=== PATIENT | female | born 1970 | race Caucasian/White ===

== ENCOUNTER 2017-09-05 11:40 | Emergency (ER) | payer OTHER ==
[2017-09-05 12:32] VITALS: BP 111/58
--- NOTE | 2017-09-05 12:45 | UC ---
Respiratory Complaint HPI - HPI Summary HPI Summary: cough / chest congestion x 10 day no fever, no chills, no nasal congestion , + sore throat - History of Current Complaint Chief Complaint: UCRespiratory Stated Complaint: THROAT,CHEST CONGESTION Time Seen by Provider: 09/05/17 12:33 Hx Obtained From: Patient Hx Last Menstrual Period: 2 weeks ?: No Onset/Duration: Gradual Onset, Lasting Days - 10, Still Present Timing: Constant Severity Initially: Moderate Severity Currently: Moderate Character: Cough: Nonproductive Aggravating Factors: Exertion, Deep Breaths Alleviating Factors: Nothing Associated Signs And Symptoms: Negative: Dyspnea, Fever, Chills, Pleuritic Chest Pain, Wheezing, Hemoptysis, Dizziness, Calf Pain, Calf Swelling, Edema, URI, Nasal Congestion, Hoarseness, Sinus Discomfort - Allergies/Home Medications Allergies/Adverse Reactions: Allergies Allergy/AdvReac Type Severity Reaction Status Date / Time No Known Allergies Allergy Verified 09/05/17 12:32 Home Medications: Home Medications Premapaxole 1 tab PO BID 09/05/17 [History] PMH/Surg Hx/FS Hx/Imm Hx Cancer History: Cervical Cancer - Surgical History Surgical History: Yes Surgery Procedure, Year, and Place: tubal ligation 1997, breast reduction 03/31, GALL BLADDER, UMBILICAL HERNIA REPAIR; D and C, cervical bx [facility] 08/25/17 - Family History Known Family History: Negative: Diabetes - Social History Alcohol Use: Rare Substance Use Type: None Smoking Status (MU): Heavy Every Day Tobacco Smoker Review of Systems Constitutional: Negative Skin: Negative Eyes: Negative ENT: Sore Throat Respiratory: Cough Cardiovascular: Negative Gastrointestinal: Negative Genitourinary: Negative Is Patient Immunocompromised?: No All Other Systems Reviewed And Are Negative: Yes Physical Exam Triage Information Reviewed: Yes Appearance: Well-Appearing, No Pain Distress, Obese Vital Signs: Initial Vital Signs Temp 97.9 F 09/05/17 12:23 Pulse 73 09/05/17 12:23 Resp 18 09/05/17 12:23 BP 111/58 09/05/17 12:23 Pulse Ox 100 09/05/17 12:23 Eye Exam: Normal ENT: Positive: Normal ENT inspection, Hearing grossly normal, Pharynx normal, Pharyngeal erythema, TMs normal. Negative: Nasal congestion, Nasal drainage Neck exam: Normal Neck: Positive: Supple, Nontender, No Lymphadenopathy Respiratory: Positive: Chest non-tender, Lungs clear, Normal breath sounds, No respiratory distress Cardiovascular: Positive: RRR, No Murmur, Pulses Normal UC Diagnostic Evaluation - Laboratory O2 Sat by Pulse Oximetry: 100 Respiratory Course/Dx - Differential Dx/Diagnosis Provider Diagnoses: viral bronchitis Discharge - Discharge Plan Condition: Stable Disposition: HOME Prescriptions: Guaifenesin-Codeine [Cheratussin AC] 10 syp PO Q8H #120 ml MDD 30 ml Patient Education Materials: Acute Bronchitis (ED) Referrals: Cass Membreno MD [Primary Care Provider] - 7 Days
== END 2017-09-05 13:00 | disposition home or self-care (01) ==
LOC: UCCORT 11:40
DX: J20.8 Acute bronchitis due to other specified organisms (principal); F17.200 Nicotine dependence, unspecified, uncomplicated
CPT/HCPCS: 99212; G0463

== ENCOUNTER 2018-04-17 18:57 | Emergency (ER) | payer SELFPAY ==
[2018-04-17 20:24] VITALS: BP 111/72
--- NOTE | 2018-04-17 20:52 | UC ---
Lower Extremity/Ankle HPI - HPI Summary HPI Summary: PATIENT PRESENTS WITH PAIN AND SWELLING IN HER RIGHT FOOT AFTER STEPPING AWKWARDLY EARLIER TODAY. HAS HAD 2 PREVIOUS RIGHT FOOT FRACTURES. IS ABLE TO WEIGHT-BEAR BUT WITH PAIN. - History of Current Complaint Chief Complaint: UCLowerExtremity Stated Complaint: RIGHT FOOT INJURY Time Seen by Provider: 04/17/18 20:42 Hx Obtained From: Patient Hx Last Menstrual Period: 2 weeks Onset/Duration: Sudden Onset, Lasting Hours, Still Present Severity Initially: Moderate Severity Currently: Moderate Pain Intensity: 6 Pain Scale Used: 0-10 Numeric Aggravating Factor(s): Standing, Ambulation Alleviating Factor(s): Rest, Elevation Able to Bear Weight: Yes - WITH PAIN - Allergies/Home Medications Allergies/Adverse Reactions: Allergies Allergy/AdvReac Type Severity Reaction Status Date / Time No Known Allergies Allergy Verified 04/17/18 20:23 Home Medications: Home Medications Pramipexole TAB* [Mirapex TAB*] 0.5 mg PO BID 04/17/18 [History Confirmed ] PMH/Surg Hx/FS Hx/Imm Hx Cancer History: Cervical Cancer - Surgical History Surgical History: Yes Surgery Procedure, Year, and Place: tubal ligation 1997, breast reduction 03/31, GALL BLADDER, UMBILICAL HERNIA REPAIR; D and C, cervical bx [facility] 08/25/17, hysterectomy 09/2017 - Family History Known Family History: Negative: Hypertension, Diabetes - Social History Alcohol Use: Rare Substance Use Type: None Smoking Status (MU): Heavy Every Day Tobacco Smoker Amount Used/How Often: 1 PPD Review of Systems Constitutional: Negative Skin: Bruising Respiratory: Negative Cardiovascular: Negative Gastrointestinal: Negative Musculoskeletal: Arthralgia, Edema All Other Systems Reviewed And Are Negative: Yes Physical Exam Triage Information Reviewed: Yes Appearance: Well-Appearing, No Pain Distress, Well-Nourished Vital Signs: Initial Vital Signs Temp 97.4 F 04/17/18 20:19 Pulse 72 04/17/18 20:19 Resp 17 04/17/18 20:19 BP 111/72 04/17/18 20:19 Pulse Ox 100 04/17/18 20:19 Vital Signs Reviewed: Yes Eyes: Positive: Conjunctiva Clear ENT: Positive: Hearing grossly normal Neck: Positive: Supple Respiratory: Positive: No respiratory distress, No accessory muscle use Cardiovascular: Positive: Pulses Normal Abdomen Description: Positive: Soft Musculoskeletal: Positive: ROM Intact, Edema @ - RIGHT FOOT, Other: - TTP DORSUM OF RIGHT FOOT AND RIGHT METATARSAL HEAD Neurological: Positive: Alert Psychological: Positive: Age Appropriate Behavior Skin: Positive: Other - BRUISING OVER DORSUM OF RIGHT FOOT Diagnostics - Radiology RIGHT FOOT XRAY Xray Interpretation: Positive (See Comments) - SOFT TISSUE SWELLING. NO FX Radiology Interpretation Completed By: Radiologist Lower Extremity Course/Dx - Differential Dx/Diagnosis Provider Diagnoses: RIGHT FOOT SPRAIN Discharge - Sign-Out/Discharge Documenting (check all that apply): Discharge/Admit/Transfer - Discharge Plan Condition: Stable Disposition: HOME Patient Education Materials: Foot Sprain (ED) Referrals: Cass Membreno MD [Primary Care Provider] - If Needed Additional Instructions: RIGHT FOOT XRAY TODAY NEGATIVE FOR FRACTURE OR DISLOCATION. YOUR SYMPTOMS SHOULD IMPROVE SIGNIFICANTLY OVER THE NEXT 1-2 WEEKS. IF YOU DO NOT IMPROVE EXPECTED FOLLOW-UP WITH YOUR PCP. YOU MAY BENEFIT FROM REPEAT IMAGING AT THAT TIME. OTC IBUPROFEN OR ALEVE NEEDED FOR DISCOMFORT. REST, ICE , COMPRESS, ELEVATE. USE YOUR BRACE AND CRUTCHES NEEDED FOR SYMPTOM RELIEF. - Billing Disposition and Condition Condition: STABLE Disposition: HOME
--- NOTE | 2018-04-17 21:13 | RAD ---
HISTORY: Right foot pain, injury COMPARISONS: None VIEWS: 3, Frontal, lateral, and oblique views of the right foot FINDINGS: BONE DENSITY: Normal. BONES: There is no displaced fracture. JOINTS: There is no arthropathy. ALIGNMENT: There is no dislocation. SOFT TISSUES: There is soft tissue swelling of the midfoot. OTHER FINDINGS: None. IMPRESSION: SOFT TISSUE SWELLING. NO ACUTE OSSEOUS INJURY. IF SYMPTOMS PERSIST, RECOMMEND REPEAT IMAGING.
== END 2018-04-17 21:38 | disposition home or self-care (01) ==
LOC: UCCORT 18:57
DX: S93.601A Unspecified sprain of right foot, initial encounter (principal); X58.XXXA Exposure to other specified factors, initial encounter; Y92.9 Unspecified place or not applicable; Z85.41 Personal history of malignant neoplasm of cervix uteri; Z90.710 Acquired absence of both cervix and uterus; F17.210 Nicotine dependence, cigarettes, uncomplicated
CPT/HCPCS: 99211; G0463

== ENCOUNTER 2019-02-14 13:10 | Emergency (ER) | payer OTHER ==
[2019-02-14 13:33] VITALS: BP 112/64
--- NOTE | 2019-02-14 13:48 | ED ---
Throat Pain/Nasal Congestion - HPI Summary HPI Summary: 48 yr old female with the complaint of left ear pain. Onset of symptoms four days ago. She has had pain that is moderate, and mild swelling left face just under ear. She has had frequent ear infections since child carrizales in same ear requiring drops and oral antibiotics. - History of Current Complaint Chief Complaint: UCRespiratory Time Seen by Provider: 02/14/19 13:34 - Allergies/Home Medications Allergies/Adverse Reactions: Allergies Allergy/AdvReac Type Severity Reaction Status Date / Time No Known Allergies Allergy Verified 02/14/19 13:22 Home Medications: Home Medications Ibuprofen/Diphenhydramine HCl [Ibuprofen Pm 200-25 mg] 1 cap PO BEDTIME PRN [History Confirmed 02/14/19] Otc Earache Drops PRN 02/14/19 [History] PMH/Surg Hx/FS Hx/Imm Hx Endocrine/Hematology History: Denies: Hx Diabetes Cardiovascular History: Denies: Hx Hypertension, Hx Pacemaker/ICD History: Denies: Hx Renal Disease Sensory History: Denies: Hx Hearing Aid Psychiatric History: Denies: Hx Panic Disorder - Cancer History Cancer Type, Location and Year: CERVICAL-LEEP SURGERY 2009 - Surgical History Surgery Procedure, Year, and Place: tubal ligation 1997, breast reduction 03/31, GALL BLADDER, UMBILICAL HERNIA REPAIR; D and C, cervical bx [facility] 08/25/17, hysterectomy 09/2017. INGUNIAL HERNIA REPAIR. APPENDECTOMY. Infectious Disease History: No Infectious Disease History: Denies: Traveled Outside the [place] in Last 30 Days - Family History Known Family History: Negative: Hypertension, Diabetes - Social History Alcohol Use: Rare Substance Use Type: Reports: None Smoking Status (MU): Heavy Every Day Tobacco Smoker Amount Used/How Often: 1/2 PPD Review of Systems Constitutional: Negative Positive: Ear Ache All Other Systems Reviewed And Are Negative: Yes Physical Exam Triage Information Reviewed: Yes Vital Signs On Initial Exam: Initial Vitals Temp Pulse Resp BP Pulse Ox 97.9 F 70 17 112/64 99 02/14/19 13:23 02/14/19 13:23 02/14/19 13:23 02/14/19 13:23 02/14/19 13:23 Vital Signs Reviewed: Yes Appearance: Positive: Well-Appearing, No Pain Distress Skin: Positive: Warm, Skin Color Reflects Adequate Perfusion Eyes: Positive: EOMI, DAYANA ENT: Positive: TM red - left TM red. Left external ear canal with erythema and mild edema. No drainage. Their is an enlarged tender lymph node in left inferior auricular area. Neck: Positive: Nontender Respiratory/Lung Sounds: Positive: Clear to Auscultation, Breath Sounds Present Cardiovascular: Positive: RRR. Negative: Murmur Abdomen Description: Negative: Distended Musculoskeletal: Positive: Strength/ROM Intact Neurological: Positive: Sensory/Motor Intact, Alert, Oriented to Person Place, Time, CN Intact II-III Psychiatric: Positive: Normal Diagnostics - Vital Signs Vital Signs Temp Pulse Resp BP Pulse Ox 02/14/19 13:23 97.9 F 70 17 112/64 99 - Laboratory Lab Statement: Any lab studies that have been ordered have been reviewed, and results considered in the medical decision making process. EENT Course/Dx - Course Course Of Treatment: 48 yr old with otitis media and externa. Rx with Augmentin and also ciprodex ear drops. - Diagnoses Provider Diagnoses: Otitis media, Otitis externa Discharge - Sign-Out/Discharge Documenting (check all that apply): Patient Departure All imaging exams completed and their final reports reviewed: No Studies - Discharge Plan Condition: Good Disposition: HOME Prescriptions: Amoxicillin/Clavulanate TAB* [Augmentin TAB 875*] 875 mg PO BID #20 tab Ciproflox/Dexameth OTIC.SUSP* [Ciprodex OTIC.SUSP*] 4 drop OTIC BID #1 btl Patient Education Materials: Ear Infection (ED), Otitis Externa (ED) Referrals: Amie Sanders [Primary Care Provider] - 3 Days - Billing Disposition and Condition Condition: GOOD Disposition: Home
== END 2019-02-14 13:48 | disposition home or self-care (01) ==
LOC: UCCORT 13:10
DX: H66.92 Otitis media, unspecified, left ear (principal); H60.92 Unspecified otitis externa, left ear; F17.210 Nicotine dependence, cigarettes, uncomplicated
CPT/HCPCS: 99212; G0463

== ENCOUNTER 2019-03-30 12:19 | Emergency (ER) | payer OTHER ==
--- OUTSIDE RECORDS SUMMARY | 2019-03-30 12:49 | XMS REPORT | Continuity of Care Document ---
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 Amie Sanders NP Primary Care Physician Unavailable Payers Date Identification Numbers Payment Provider Subscriber Effective: 2008 Policy Number: [id number] [employer] Juanita Cantrell PayID: [id number] [address] [place] [address] Advance Directives Description No Information Available Problems Date Description Provider Status Onset: 04/10/2015 Seasonal allergic rhinitis Active Onset: 08/31/2015 Diverticular disease of colon Maribel Tellez PA-C Active Note: colo to TI Bx 2015 Onset: 08/31/2015 Gastroesophageal reflux disease Maribel Tellez PA-C Active Note: upper to D4 Bx- 2016 Onset: 08/31/2015 Asthma Maribel Tellez PA-C Active Onset: 08/31/2015 Atopic dermatitis Maribel Tellez PA-C Active Onset: 08/15/2016 Sprain of ankle Maren Brown PA Active Onset: 08/15/2016 Closed fracture of medial Maren Brown PA Active malleolus Onset: 11/16/2016 Contusion of lower leg Lino Marie M.D. Active Onset: 04/27/2018 Digestive symptom Marek Lewis MD Active Onset: 04/27/2018 Diverticulitis of colon Marek Lewis MD Active Onset: 04/27/2018 Weight decreased Marek Lewis MD Active Onset: 04/27/2018 Chronic nonalcoholic liver disease Marek Lewis MD Active Onset: 06/08/2018 Right lower quadrant pain Marek Lewis MD Active Onset: 08/10/2018 Inguinal hernia without Man, MD Kevin,FACS Active obstruction AND without gangrene Family History Date Family Member(s) Observation Comments General Non Contributory Father Stomach Cancer Patient states that she thinks her dad had stomach cancer but she did not have a relationship with him so she is unsure. 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[employer] Work Status Employed [employer] Hand [employer] Right-handed Tobacco Use Start: Unknown Current Cigarette Smoker 1 Pack Daily Smoking Status Reviewed: 02/28/19 Current Cigarette Smoker 1 Pack Daily Smokeless Tobacco Never Used Smokeless Tobacco ETOH Use Currently consumes alcohol socially Recreational Drug Use Never Used Drugs Tobacco Use Start: Unknown Light tobacco smoker (10 or fewer cigarettes/day) Exercise Type/Frequency Walks daily Allergies, Adverse Reactions, Alerts Description No Known Drug Allergies Medications Medication Date Status Form Strength Qnty SIG Indications Ordering Provider Nitroglycerin 02/29/20 Active Tablets 0.4mg 60tab 1 tab by R07.89 Marc 19 Sub s mouth up , Baljeet, to 4 MD times a day as needed Zofran 02/29/20 Active Tablets 4mg 90tab 1 tab by Marc 19 s mouth Baljeet, three MD times a day as needed nausea Dicyclomine HCL 02/29/20 Active Capsules 10mg 90cap 1 cap by K57.33 Marc 19 s Baljeet cordova, three MD times a day as needed Lactulose 12/20/19 Active Solution 20GM/30ML 1800m by mouth K59.00 Marc 19 l twice a , Baljeet, day as MD needed Fleet Enema 12/20/19 Active Enema 7-19GM/11 133ml 1 unit K57.30 Marc 19 8ML per Baljeet rectum once at night and once in morning Pramipexole Active Tablets 0.5mg 1 PO Unknown Dihydrochloride 00 qday, restless leg syndrome Tums Active Chewtabs 500mg 1-2 tab Unknown 00 by mouth four times a day heartburn Levaquin 10/23/20 Hx Tablets 500mg 14tab take one K57.32 Man, 18 - s tablet by Kevin 12/05/19 art HUBBARD,FACS 19 daily for 14 days. take it in the middle of your meal Flagyl 10/23/20 Hx Tablets 500mg 42tab take one K57.32 Man, 18 - s tablet by Kevin 12/05/19 mouth 3 ,FACS 19 times daily for 14 days. take it in the middle of your meal Keflex 09/04/20 Hx Capsules 750mg 21cap take one K40.90 Man, 18 - s tablet by Kevin 09/18/20 mouth ,FACS 18 three times daily. take it in the middle of your meal. Amitiza 08/10/20 Hx Capsules 24mcg 180ca 1 caps by Marek Cid - ps art Lewis MD 08/14/20 twice a 18 day Miralax 08/10/20 Hx Powder 3350NF 3Bott 3 cap by Marek Cid - les art Lewis MD 12/20/19 every day 19 every morning Linzess 08/08/20 Hx Capsules 145mcg 90cap 1 by Marek Cid - s art Lewis MD 08/14/20 every day 18 Dulcolax 06/08/[address] 5mg 4tabs 4 tablets K57.33 Marek 18 - taken darleen Lewis MD 08/10/20 8pm the 18 day before the procedure Peg-3350/Electro 06/08/20 Hx Solution 236gm 1unit please K57.33 Marek lytes 18 - Rec s drink 1/2 MD Joshua 08/10/20 evening 18 before and drink 1/2 morning of the procedure (1 cup every 15 minutes) Citroma 06/08/20 Hx Solution 1.745GM/3 296ml 1 bottle K57.33 Marek 18 - 0ML by art Lewis MD 08/10/20 once 18 Dicyclomine HCL 04/27/20 Hx Capsules 10mg 30cap 1 cap by Randolph33 Marek Cid - s art Lewis MD 08/10/20 three 18 times a day as needed Zantac 150 04/27/20 Hx Tablets 150mg 90tab 1 by K21.9 Marek Maximum Strength 18 - s mouth MD Joshua 12/20/19 every day 19 Golytely 06/17/20 Hx Solution 227.1gm 1bott drink 1 R10.9 Velia 16 - Rec le cup every Tung, Unknown 10'; drink half of jug the evening before the procedure , the other half the morning of the procedure Omeprazole 02/25/20 Hx Capsules 20mg 180ca 1 by Velia 16 - DR ps mouth Tung, 08/15/20 twice a MD 16 day Golytely 08/31/20 Hx Solution 227.1gm 1bott drink 1 R19.7 Velia, 15 - Rec le cup every Tung, 10/06/20 10'; 15 drink half of jug the evening before the procedure , the other half the morning of the procedure Neomycin/Polymyx 08/27/20 Hx Suspension 3.5-64951 5ml 1 drop B30.1 susi Ware/Dexamethasone 15 - -0.1 both eyes MD Baljeet 10/06/20 four 15 times daily for 10 days Nabumetone 04/27/20 Hx Tablets 500mg 60tab take 1 Pompo, 15 - s tablet by Marlon Oneil mouth 2 M.D. times a day with food Meloxicam 04/10/20 Hx Tablets 15mg 30tab 1 by Pompo, 14 - s mouth Thad, 04/27/20 every day M.D. 15 c food Cyclobenzaprine 04/10/20 Hx Tablets 10mg 30tab 1 po tid Lawsing, HCL 14 - s prn Luis Urbina, Unknown muscle , FACS spasms Tramadol HCL Hx Tablets 50mg 1 po bid Unknown 00 - as needed Unknown for pain Zantac Hx Tablets 300mg 1 po qd Unknown 00 - Unknown Ibuprofen Hx Tablets 200mg prn Unknown 00 - Unknown Omeprazole Hx Capsules 20mg 30cap 1 po bid Unknown 00 - DR s Unknown Tramadol HCL ER Hx Tablets ER 100mg Unknown 00 - 24HR 04/30/20 13 Trazodone HCL Hx Tablets 100mg Unknown 00 - Unknown Omeprazole Hx Capsules 40mg 90cap 1 po qd Unknown 00 - DR s 02/25/20 16 Albuterol Hx Nebulizer (2.5mg/3M 75ml prn Unknown Sulfate 00 - L) 0.083% 10/06/20 15 Ibuprofen Hx 200mg 2 po Unknown 00 - every 6 11/28/19 hours as 18 need Excedrin PM Hx Unknown - 06/17/20 16 Ibuprofen Hx Tablets 600mg 90tab 1 by Inna - s mouth Taiwo, 05/14/20 three MD 18 times a day as needed Hydrocodone-Acet Hx Tablets 5-325mg Take One Unknown aminophen 00 - Tablet By 09/18/20 Mouth 18 Every 6 Hours as Needed For Pain May Take 2 T Omeprazole Hx Capsules 40mg Take One Unknown - DR Capsule 12/20/19 By Mouth 19 Every Day Immunizations CPT Code Status Date Vaccine Lot # [id number] Given 08/25/2015 Influenza Vaccine (Fluzone) Age 3 And Older Vital Signs Date Vital Result Comment 02/28/2019 3:12pm BP Systolic Sitting Left Arm 110 mmHg BP Diastolic Sitting Left Arm 74 mmHg Heart Rate 76 /min Respiratory Rate 16 /min Height 66 inches 5'6" Weight 207.00 lb BMI (Body Mass Index) 33.4 kg/m2 BSA (Body Surface Area) 2.03 m2 [place] body weight in kilograms 59 kg O2 % BldC Oximetry 98 % 12/20/2018 8:30am BP Systolic Sitting Left Arm 110 mmHg BP Diastolic Sitting Left Arm 78 mmHg Heart Rate 75 /min Respiratory Rate 16 /min Height 66 inches 5'6" Weight 209.00 lb BMI (Body Mass Index) 33.7 kg/m2 BSA (Body Surface Area) 2.04 m2 [place] body weight in kilograms 59 kg O2 % BldC Oximetry 98 % Ra 12/05/2018 3:05pm Respiratory Rate 17 /min Height 66 inches 5'6" Weight 212.00 lb BMI (Body Mass Index) 34.2 kg/m2 BSA (Body Surface Area) 2.05 m2 [place] body weight in kilograms 59 kg 10/23/2018 11:22am BP Systolic Sitting Right Arm 103 mmHg BP Diastolic Sitting Right Arm 71 mmHg Heart Rate 70 /min Height 66 inches 5'6" Weight 211.00 lb BMI (Body Mass Index) 34.1 kg/m2 BSA (Body Surface Area) 2.05 m2 [place] body weight in kilograms 59 kg O2 % BldC Oximetry 98 % 09/18/2018 3:25pm BP Systolic 126 mmHg BP Diastolic 82 mmHg Heart Rate 71 /min Respiratory Rate 17 /min Height 66 inches 5'6" Weight 208.00 lb BMI (Body Mass Index) 33.6 kg/m2 BSA (Body Surface Area) 2.03 m2 [place] body weight in kilograms 59 kg O2 % BldC Oximetry 100 % 09/04/2018 9:52am BP Systolic 130 mmHg BP Diastolic 76 mmHg Heart Rate 67 /min Respiratory Rate 16 /min Height 66 inches 5'6" Weight 205.00 lb BMI (Body Mass Index) 33.1 kg/m2 BSA (Body Surface Area) 2.02 m2 [place] body weight in kilograms 59 kg O2 % BldC Oximetry 100 % 08/10/2018 9:56am BP Systolic 127 mmHg BP Diastolic 85 mmHg Body Temperature 98.1 F Heart Rate 68 /min Respiratory Rate 17 /min Height 66 inches 5'6" Weight 203.00 lb BMI (Body Mass Index) 32.8 kg/m2 BSA (Body Surface Area) 2.01 m2 [place] body weight in kilograms 59 kg O2 % BldC Oximetry 98 % 06/08/2018 4:25pm BP Systolic Sitting Right Arm 128 mmHg BP Diastolic Sitting Right Arm 76 mmHg Heart Rate 81 /min Respiratory Rate 18 /min Height 66 inches 5'6" Weight 204.00 lb BMI (Body Mass Index) 32.9 kg/m2 BSA (Body Surface Area) 2.02 m2 [place] body weight in kilograms 59 kg O2 % BldC Oximetry 98 % 05/14/2018 2:45pm BP Systolic Sitting Left Arm 113 mmHg BP Diastolic Sitting Left Arm 72 mmHg Body Temperature 98.0 F Heart Rate 65 /min Respiratory Rate 17 /min Height 66 inches 5'6" Weight 201.00 lb BMI (Body Mass Index) 32.4 kg/m2 BSA (Body Surface Area) 2.00 m2 [place] body weight in kilograms 59 kg O2 % BldC Oximetry 98 % 04/27/2018 3:22pm BP Systolic Sitting Right Arm 144 mmHg BP Diastolic Sitting Right Arm 88 mmHg Heart Rate 70 /min Respiratory Rate 16 /min Height 66 inches 5'6" Weight 205.00 lb BMI (Body Mass Index) 33.1 kg/m2 BSA (Body Surface Area) 2.02 m2 [place] body weight in kilograms 59 kg O2 % BldC Oximetry 98 % 11/28/2017 1:50pm BP Systolic 146 mmHg BP Diastolic 86 mmHg Body Temperature 96.5 F Heart Rate 88 /min Respiratory Rate 16 /min Height 66 inches 5'6" Weight 209.00 lb BMI (Body Mass Index) 33.7 kg/m2 BSA (Body Surface Area) 2.04 m2 [place] body weight in kilograms 59 kg 12/14/2016 1:55pm Weight 224.00 lb 11/16/2016 1:25pm BP Systolic Sitting Left Arm 131 mmHg BP Diastolic Sitting Left Arm 82 mmHg Heart Rate 75 /min Height 67 inches 5'7" Weight 227.00 lb BMI (Body Mass Index) 35.5 kg/m2 BSA (Body Surface Area) 2.13 m2 [place] body weight in kilograms 61 kg 08/15/2016 2:19pm BP Systolic Sitting Left Arm 118 mmHg BP Diastolic Sitting Left Arm 72 mmHg Height 65 inches 5'5" Weight 261.00 lb BMI (Body Mass Index) 43.4 kg/m2 BSA (Body Surface Area) 2.22 m2 07/06/2016 2:58pm BP Systolic Sitting Right Arm 122 mmHg BP Diastolic Sitting Right Arm 78 mmHg Heart Rate 80 /min Respiratory Rate 16 /min Height 65 inches 5'5" Weight 238.00 lb BMI (Body Mass Index) 39.6 kg/m2 BSA (Body Surface Area) 2.13 m2 06/17/2016 4:48pm BP Systolic 122 mmHg BP Diastolic 70 mmHg Heart Rate 61 /min Respiratory Rate 18 /min Height 65 inches 5'5" Weight 241.00 lb BMI (Body Mass Index) 40.1 kg/m2 BSA (Body Surface Area) 2.14 m2 O2 % BldC Oximetry 98 % ra 10/14/2015 10:02am BP Systolic 134 mmHg BP Diastolic 72 mmHg Heart Rate 70 /min Height 65 inches 5'5" Weight 240.00 lb BMI (Body Mass Index) 39.9 kg/m2 BSA (Body Surface Area) 2.14 m2 O2 % BldC Oximetry 98 % 10/06/2015 11:14am BP Systolic 135 mmHg BP Diastolic 86 mmHg Heart Rate 75 /min Height 65 inches 5'5" Weight 240.00 lb BMI (Body Mass Index) 39.9 kg/m2 BSA (Body Surface Area) 2.14 m2 O2 % BldC Oximetry 98 % 08/31/2015 10:54am BP Systolic Sitting Left Arm 124 mmHg BP Diastolic Sitting Left Arm 72 mmHg Heart Rate 76 /min Respiratory Rate 19 /min Height 67 inches 5'7" Weight 236.00 lb BMI (Body Mass Index) 37.0 kg/m2 BSA (Body Surface Area) 2.17 m2 03/17/2015 11:07am BP Systolic Sitting Left Arm 118 mmHg BP Diastolic Sitting Left Arm 71 mmHg Height 66 inches 5'6" Weight 235.00 lb BMI (Body Mass Index) 37.9 kg/m2 BSA (Body Surface Area) 2.14 m2 03/04/2014 11:01am BP Systolic Sitting Left Arm 108 mmHg BP Diastolic Sitting Left Arm 76 mmHg Respiratory Rate 16 /min Height 66 inches 5'6" Weight 234.00 lb BMI (Body Mass Index) 37.8 kg/m2 BSA (Body Surface Area) 2.14 m2 01/15/2014 9:41am BP Systolic Sitting Right Arm 108 mmHg BP Diastolic Sitting Right Arm 72 mmHg Heart Rate 61 /min Respiratory Rate 16 /min Height 66 inches 5'6" Weight 229.00 lb BMI (Body Mass Index) 37.0 kg/m2 BSA (Body Surface Area) 2.12 m2 04/30/2013 9:55am BP Systolic Sitting Left Arm 110 mmHg BP Diastolic Sitting Left Arm 78 mmHg Height 66 inches 5'6" Weight 216.00 lb BMI (Body Mass Index) 34.9 kg/m2 BSA (Body Surface Area) 2.07 m2 04/03/2012 11:22am BP Systolic Sitting Left Arm 132 mmHg BP Diastolic Sitting Left Arm 88 mmHg Heart Rate 66 /min Respiratory Rate 16 /min Height 66 inches 5'6" Weight 213.00 lb BMI (Body Mass Index) 34.4 kg/m2 03/26/2012 3:04pm BP Systolic Sitting Right Arm 136 mmHg BP Diastolic Sitting Right Arm 96 mmHg BP Systolic Sitting Left Arm 138 mmHg BP Diastolic Sitting Left Arm 100 mmHg Heart Rate 64 /min Respiratory Rate 16 /min Height 66 inches 5'6" Weight 215.00 lb BMI (Body Mass Index) 34.7 kg/m2 03/26/2012 9:21am BP Systolic Sitting Right Arm 118 mmHg BP Diastolic Sitting Right Arm 84 mmHg Heart Rate 64 /min Respiratory Rate 16 /min Height 66 inches 5'6" Weight 218.00 lb BMI (Body Mass Index) 35.2 kg/m2 06/04/2010 11:28am Heart Rate 62 /min Regular Respiratory Rate 16 /min Weight 210.00 lb Results Test Date Facility Test Result H/L Range Note Laboratory test [facility] D-Dimer, 0.30 ug/mL 1, 2 finding [address] Quantitative [place], [place] [id number] [phone] Laboratory test [facility] Urine HCG NEGATIVE Negative 3, 4 finding [address] (Qualitative) [place] [address] [phone] HIV 1/2 Rapid [facility] HIV 1/2 Unigold Non-Reactive 5, [address] [place], [place] [id number] [phone] Laboratory test [facility] Hepatitis B Negative Negative finding [address] [place] [place] [address] [phone] Hepatitis C Antibody < 0.1 s/corat 0.0-0.9 7 Lab Report: Hepatitis 08/23/2018 N2N/CCD Import HBsAg Screen Negative Negative B Surface [Ref Lab] Antigen--neg, HCV Lab Report: CBC, PT/ 08/16/2018 N2N/CCD Import Albumin 4.5 g/dL 3.2-5.2 Inr, CMP Albumin/Globulin Ratio 2.0 1-3 Alkaline Phosphatase 85 U/L 34-104 Alt 26 U/L 7-52 Ast 18 U/L 13-39 BUN/Creatinine Ratio 18.5 8-20 Blood Urea Nitrogen 12 mg/dL 6-24 Calcium 9.7 mg/dL 8.6-10.3 Chloride 108 mmol/L 101-111 Co2 Carbon Dioxide 26 mmol/L 22-32 Creatinine 0.65 mg/dL 0.51-0.95 Egfr 118.7 (?) >60 Egfr Non- 98.1 (?) >60 Globulin 2.3 2-4 Hematocrit 41 % 35-47 Hemoglobin 13.5 g/dL 12.0-16.0 Inr 0.87 0.77-1.02 Mean Corpuscular HGB Conc 33 g/dL 31-36 Mean Corpuscular Hemoglobin 28 pg 27-31 Mean Corpuscular Volume 84 fL 80-97 Mean Platelet Volume 8.5 Um3 7.4-10.4 Platelet Count 236 10 3/Ul 150-450 Potassium 4.7 mmol/L 3.5-5.0 Red Blood Count 4.85 10 6/Ul 4.00-5.40 Red Cell Distribution Width 15 % 10.5-15 Sodium 141 mmol/L 135-145 Total Bilirubin 0.30 mg/dL 0.2-1.0 Total Protein 6.8 g/dL 6.4-8.9 White Blood Count 10.1 10 3/Ul 3.5-10.8 Lab Report: CBS W/Automated Diff, 07/23/2018 N2N/CCD Import Alb/Glob 1.0 ratio Urinalysis With Albumin 3.3 g/dL Low 3.4-5.0 BUN 11 mg/dL 7-18 BUN/Creat 18.3 ratio Bilirubin,Total 0.2 mg/dL 0.2-1.0 Calcium 8.3 mg/dL Low 8.5-10.1 Carbon Dioxide 28 mmol/L 21-32 Chloride 112 mmol/L High 98-107 Creatinine 0.6 mg/dL 0.6-1.3 Eo% 8.2 % High 0.0-6.6 Eos # 0.85 10*3/uL High 0.0-0.5 Globulin 3.2 g/dL 1.9-4.3 Glom Filtration Rate, Estimate >60 mL/min >60 Hematocrit 36.1 % 36.0-46.1 Hemoglobin 11.7 g/dL 11.6-15.8 If >60 >60 Lymph % 25.6 % 20.0-42.0 Mean Cell Volume 87.0 fL 80.9-99.0 Mean Corpuscular HGB 28.2 pg 25.9-32.7 Mean Corpuscular HGB Conc 32.4 g/dL 30.8-34.3 Mean Platelet Volume 9.9 fL 8.9-12.4 [place] % 6.1 % 4.3-13.2 Neut% 59.8 % 40.4-72.8 Platelet Count 258 10*3/mm3 155-360 Potassium 3.7 mmol/L 3.5-5.1 Red Blood Count 4.15 M/Ul 3.90-5.40 Red Cell Distri Width SD 45.6 fL 3-47 SGPT/Alt 36 U/L 12-78 Sgot/Ast 15 U/L 15-37 Sodium 147 mmol/L High 136-145 Total Protein 6.5 g/dL 6.4-8.2 Urine Bilirubin - Dipstick Negative Negative Urine Blood Negative Negative Urine Color Yellow Yellow Urine Glucose - Dipstick Negative Negative Urine Ketone Negative Negative Urine Leuk Esterase Small Abnormal Negative Urine Nitrite - Dipstick Negative Negative Urine Specific [place] 1.025 1.010-1.030 Urine Urobilinogen - Dipstick 0.2 E.U./DL 0.2-1.0 White Blood Count 10.3 10*3/mm3 3.1-10.7 Lab Report: CBC, Ua RFX 07/19/2018 N2N/CCD Import Hematocrit 40.9 % 36.0 -46.1 Micro Culture II Hemoglobin 13.2 g/dL 11.6-15.8 Mean Cell Volume 85.9 fL 80.9-99.0 Mean Corpuscular HGB 27.7 pg 25.9-32.7 Mean Corpuscular HGB Conc 32.3 g/dL 30.8-34.3 Mean Platelet Volume 9.5 fL 8.9-12.4 Platelet Count 255 10*3/mm3 155-360 Red Blood Count 4.76 M/Ul 3.90-5.40 Urine Bilirubin - Dipstick Negative Negative Urine Blood Negative Negative Urine Color Yellow Yellow Urine Glucose - Dipstick Negative Negative Urine Ketone Negative Negative Urine Leuk Esterase Negative Negative Urine Nitrite - Dipstick Negative Negative Urine Specific [place] 1.025 1.010-1.030 Urine Urobilinogen - Dipstick 0.2 E.U./DL 0.2-1.0 White Blood Count 10.2 10*3/mm3 3.1-10.7 Lab Report: Type 07/19/2018 N2N/CCD Import Patient Blood Type O Pos And Screen Laboratory test 06/08/2018 [facility] Sedimentation Rate 15 mm/hr N 0-20 8, 9 finding [address] [place] [address] [phone] C-Reactive Protein,Quant 5.1 mg/L High <3.0 Porphobilinogen,QN,Random Urin 1.4 mg/L 0.0-2.0 10 Complement C4, Serum 30 mg/dL 14-44 C1 Esterase Inhibitor 19 mg/dL Low 21-39 11 C1 Esterase Inhibitor Function 109 %meanno . 12 Lab Report: Ua 05/30/2018 N2N/CCD Import Urine Bilirubin - Small Abnormal Negative RFX Micro Dipstick Culture II Urine Blood Negative Negative Urine Color Yellow Yellow Urine Glucose - Dipstick Negative Negative Urine Ketone Trace High Negative Urine Leuk Esterase Negative Negative Urine Nitrite - Dipstick Negative Negative Urine Specific [place] >=1.030 1.010-1.030 Urine Urobilinogen - Dipstick 0.2 E.U./DL 0.2-1.0 Lab Report: Comprehensive 05/30/2018 N2N/CCD Import Alb/Glob 1.0 ratio Metabolic Panel, CBS W/A Albumin 3.4 g/dL 3.4-5.0 BUN 10 mg/dL 7-18 BUN/Creat 12.5 ratio Bilirubin,Total 0.2 mg/dL 0.2-1.0 Calcium 8.3 mg/dL Low 8.5-10.1 Carbon Dioxide 25 mmol/L 21-32 Chloride 112 mmol/L High 98-107 Creatinine 0.8 mg/dL 0.6-1.3 Eo% 4.4 % 0.0-6.6 Eos # 0.47 10*3/uL 0.0-0.5 Globulin 3.5 g/dL 1.9-4.3 Glom Filtration Rate, Estimate >60 mL/min >60 Hematocrit 38.7 % 36.0-46.1 Hemoglobin 12.5 g/dL 11.6-15.8 If >60 >60 Lymph % 20.7 % 20.0-42.0 Mean Cell Volume 87.0 fL 80.9-99.0 Mean Corpuscular HGB 28.1 pg 25.9-32.7 Mean Corpuscular HGB Conc 32.3 g/dL 30.8-34.3 Mean Platelet Volume 10.0 fL 8.9-12.4 [place] % 7.7 % 4.3-13.2 Neut% 66.9 % 40.4-72.8 Platelet Count 233 10*3/mm3 155-360 Potassium 3.8 mmol/L 3.5-5.1 Red Blood Count 4.45 M/Ul 3.90-5.40 Red Cell Distri Width SD 47.7 fL High 3-47 SGPT/Alt 37 U/L 12-78 Sgot/Ast 25 U/L 15-37 Sodium 145 mmol/L 136-145 Total Protein 6.9 g/dL 6.4-8.2 White Blood Count 10.7 10*3/mm3 3.1-10.7 Lab Report: CBS W/Automated Diff 05/30/2018 N2N/CCD Import Eo% 4.5 % 0.0 -6.6 Eos # 0.42 10*3/uL 0.0-0.5 Hematocrit 37.5 % 36.0-46.1 Hemoglobin 12.1 g/dL 11.6-15.8 Lymph % 19.3 % Low 20.0-42.0 Mean Cell Volume 87.4 fL 80.9-99.0 Mean Corpuscular HGB 28.2 pg 25.9-32.7 Mean Corpuscular HGB Conc 32.3 g/dL 30.8-34.3 Mean Platelet Volume 9.7 fL 8.9-12.4 [place] % 7.4 % 4.3-13.2 Neut% 68.6 % 40.4-72.8 Platelet Count 217 10*3/mm3 155-360 Red Blood Count 4.29 M/Ul 3.90-5.40 Red Cell Distri Width SD 47.4 fL High 3-47 White Blood Count 9.4 10*3/mm3 3.1-10.7 Lab Report: Ua 05/30/2018 N2N/Test.tv Import Urine Bilirubin - Negative Negative RFX Micro Dipstick Culture II Urine Blood Negative Negative Urine Color Yellow Yellow Urine Glucose - Dipstick Negative Negative Urine Ketone Negative Negative Urine Leuk Esterase Negative Negative Urine Nitrite - Dipstick Negative Negative Urine Specific [place] <=1.005 Low 1.010-1.030 Urine Urobilinogen - Dipstick 0.2 E.U./DL 0.2-1.0 Lab Report: 05/29/2018 N2N/CCD Import Urine Bilirubin - Negative Negative RFX Micro Dipstick Culture II Urine Blood Negative Negative Urine Color Yellow Yellow Urine Glucose - Dipstick Negative Negative Urine Ketone Negative Negative Urine Leuk Esterase Negative Negative Urine Nitrite - Dipstick Negative Negative Urine Specific [place] 1.015 1.010-1.030 Urine Urobilinogen - Dipstick 0.2 E.U./DL 0.2-1.0 5-Hiaa,Quant 24 HR 05/25/2018 [facility] 5-Hiaa, Urine 2.0 mg/L Undefined [address] [place] [address] [phone] 5-Hiaa, Urine, 24 HR 0.9 mg/24hr 0.0-14.9 14 Ova & 05/24/2018 [facility] Cryptosporidium NEGATIVE FOR 15, [address] Specific Ag [place] [address] NOTE> Screen [phone] Giardia Specific Antigen NEGATIVE FOR SAMIA <SEE NOTE> 17 Stool Culture 05/24/2018 [facility] Stool Culture NO ENTERIC PATHO [address] <SEE NOTE> [place] [address] [phone] . ................ <SEE NOTE> 19 Note: INCLUDES TESTING <SEE NOTE> 20 . PLESIOMONAS, CAM <SEE NOTE> 21 . ................ <SEE NOTE> 22 . YERSINIA AND VIB <SEE NOTE> 23 . SHOULD BE REQUES <SEE NOTE> 24 Shiga Toxin 1 Antigen SHIGA TOXIN 1 NO <SEE NOTE> 25 Shiga Toxin 2 Antigen SHIGA TOXIN 2 NO <SEE NOTE> 26 Fecal Fat, Qualitative 05/24/2018 [facility] Fats, Neutral Normal . [address] [place] [address] [phone] Fats, Total Normal . 28 Laboratory test 05/24/2018 [facility] Pancreatic > 500.0 >200 [address] Elastase (Pe-1) ug/[place] [address] [phone] Lactoferrin, Stool Quant < 1.00 ug/mL(g) 0.00-7.24 30 Laboratory 04/27/2018 [facility] Hepatitis C 0.1 0.0-0.9 31 test finding [address] Antibody s/[place] [address] [phone] Laboratory 04/27/2018 [facility] Sedimentation 6 mm/hr N 0-20 32 test finding [address] Rate [place], [place] [id number] [phone] Nam Fibrosure 04/27/2018 [facility] Nam Fibrosis 0.03 0.00-0.[address] Score [place], [place] [id number] [phone] Nam Fibrosis Stage (SEE NOTE) 33 Nam Steatosis Score 0.63 High 0.00-0.30 Nam Steatosis Grade (SEE NOTE) 34 Nam Score 0.50 0.25 Nam Grade (SEE NOTE) 35 Height 66 in . Weight Measured 205 LBS . Azmia-8-Dogzkxabrtbbm 178 mg/dL 110-276 Haptoglobin 191 mg/dL 34-200 Apolipoprotein A-1 175 mg/dL 116-209 Bilirubin,Total 0.1 mg/dL 0.0-1.2 GGT 63 IU/L High 0-60 Alt (SGPT) 25 IU/L 0-40 Alt (Sgot) P5P 24 IU/L 0-40 Cholesterol,Total 215 mg/dL High 100-199 Glucose, Serum 88 mg/dL 65-99 Triglycerides 178 mg/dL High 0-149 Nam Interpretations: (SEE NOTE) 36 Fibrosis Scoring (SEE NOTE) 37 Steatosis Grading (SEE NOTE) 38 Nam Scoring (SEE NOTE) 39 Nam Limitations (SEE NOTE) 40 Nam Comment 2 (SEE NOTE) 41 Height 66 Weight 205 Celiac Disease 04/27/2018 [facility] Immunoglobulin A 175 mg/dL 87-352 Comp AB Profile [address] [place], [place] [id number] [phone] Antigliadin Abs, IgG 2 units 0-19 42 Antigliadin Abs, IgA 4 units 0-19 43 Endomysial IgA Antibody Negative Negative t-Transglutaminase IgA <2 U/mL 0-3 44 t-Transglutaminase IgG <2 U/mL 0-5 45 Height 66 Weight 205 Ceruloplasmin 04/27/2018 [facility] Ceruloplasmin 34.5 mg/dL 19.0-39.[address] [place], [place] [id number] [phone] Height 66 Weight 205 C-Reactive 04/27/2018 [facility] C-Reactive 14.7 High <3.0 Protein,Quant [address] [facility] Protein,Quant mg/[place] [address] [phone] Reflex add FT4? Y TSH Reflex FT4 04/27/2018 [facility] Thyroid Stim 0.84 uIU/mL N 0.30-4.20 And/Or FT3 [address] [place] [address] [phone] Reflex add FT4? Y Prealbumin 04/27/2018 [facility] Prealbumin 26.7 mg/dL N 20.0-40.0 [address] [place] [address] [phone] Reflex add FT4? Y Triglycerides 04/27/2018 [facility] Triglycerides 166 mg/dL High <150 47 [address] [place] [address] [phone] Reflex add FT4? Y Serum or plasma 11/02/2017 N2N/CCD Import Serum or plasma 8.8 8.5-10.1 calcium measurement calcium measurement (mass/volume) (mass/volume) Serum or plasma 11/02/2017 N2N/CCD Import Serum or plasma 67 26-192 creatine kinase creatine kinase measurement (enzym measurement (enzymatic activity/volume) Serum or plasma 11/02/2017 N2N/CCD Import Serum or plasma 0.7 0.6-1.3 creatinine creatinine measurement measurement (mass/volum (mass/volume) Serum or plasma 11/02/2017 N2N/CCD Import Serum or plasma 104 74-106 glucose measurement glucose measurement (mass/volume) (mass/volume) Serum or plasma 11/02/2017 N2N/CCD Import Serum or plasma 7.2 6.4-8.2 protein measurement protein measurement (mass/volume) (mass/volume) Serum or plasma 11/02/2017 N2N/CCD Import Serum or plasma 0.2 0.2-1.0 total bilirubin total bilirubin measurement (mass/ measurement (mass/volume) Serum or plasma urea 11/02/2017 N2N/CCD Import Serum or plasma 12 7-18 nitrogen measurement urea nitrogen (mass/vo measurement (mass/volume) Serum sodium 11/02/2017 N2N/CCD Import Serum sodium 141 136-145 measurement measurement WBC # Bld Auto 11/02/2017 N2N/CCD Import WBC # Bld Auto 13.5 High 3.1- 10.7 Albumin/Glob SerPl 11/02/2017 N2N/CCD Import Albumin/Glob SerPl 0.9 Alt SerPl-cCnc 11/02/2017 N2N/CCD Import Alt SerPl-cCnc 30 12-78 Lymphocytes/leuk NFr 11/02/2017 N2N/CCD Import Lymphocytes/leuk 23.0 20.0-42.0 Bld Auto NFr Bld Auto Globulin Ser 11/02/2017 N2N/CCD Import Globulin Ser 3.7 1.9-4.3 Calc-mCnc Calc-mCnc Fibrin D-dimer Feu 11/02/2017 N2N/CCD Import Fibrin D-dimer Feu 0.27 measurement in measurement in platelet poor pl platelet poor plasma (mass/volume) Eosinophil/leuk NFr 11/02/2017 N2N/CCD Import Eosinophil/leuk NFr 3.8 0.0-6.6 Bld Auto Bld Auto Chloride SerPl-sCnc 11/02/2017 N2N/CCD Import Chloride SerPl-sCnc 108 High 98-107 Blood monocytes 11/02/2017 N2N/CCD Import Blood monocytes 0.92 High 0.3- 0.9 automated count automated count (number/volume) (number/volume) Blood hemoglobin 11/02/2017 N2N/CCD Import Blood hemoglobin 12.6 11.6- 15.8 measurement measurement (mass/volume) (mass/volume) Blood erythrocytes 11/02/2017 N2N/CCD Import Blood erythrocytes 4.66 3.90-5.40 automated count automated count (number/volume) (number/volume) Basophils/leuk NFr 11/02/2017 N2N/CCD Import Basophils/leuk NFr 0.3 0.0- 1.1 Bld Auto Bld Auto BUN/Creat SerPl 11/02/2017 N2N/CCD Import BUN/Creat SerPl 17.1 Automated 11/02/2017 N2N/CCD Import Automated 83.3 80.9-99.0 erythrocyte mean erythrocyte mean corpuscular volume corpuscular volume Automated 11/02/2017 N2N/CCD Import Automated 32.5 30.8-34.3 erythrocyte mean erythrocyte mean corpuscular corpuscular hemoglobin hemoglobin concentration measurement (mass/volume) Automated 11/02/2017 N2N/CCD Import Automated 27.0 25.9-32.7 erythrocyte mean erythrocyte mean corpuscular corpuscular hemoglobin hemoglobin (mass per erythrocyte) Automated blood 11/02/2017 N2N/CCD Import Automated blood 9.8 8.9-12.4 platelet mean volume platelet mean measurement volume measurement Automated blood 11/02/2017 N2N/CCD Import Automated blood 298 155-360 platelet count platelet count Automated blood 11/02/2017 N2N/CCD Import Automated blood 3.11 1.0-4.0 lymphocyte count lymphocyte count (number/volume) (number/volume) Automated blood 11/02/2017 N2N/CCD Import Automated blood 38.8 36.0- 46.1 hematocrit (volume hematocrit (volume fraction) fraction) Automated blood 11/02/2017 N2N/CCD Import Automated blood 0.52 High 0.0- 0.5 eosinophil count eosinophil count Automated blood 11/02/2017 N2N/CCD Import Automated blood 0.04 0.0-0.1 basophil count basophil count (count/volume) (count/volume) Anion Gap SerPl-sCnc 11/02/2017 N2N/CCD Import Anion Gap 6 Low 8-16 SerPl-sCnc Serum or plasma 11/02/2017 N2N/CCD Import Serum or plasma 16 15-37 aspartate aspartate aminotransferase aminotransferase measure measurement (enzymatic activity/volume) Serum or plasma 11/02/2017 N2N/CCD Import Serum or plasma 86 45-117 alkaline phosphatase alkaline measurement ( phosphatase measurement (enzymatic activity/volume) Serum or plasma 11/02/2017 N2N/CCD Import Serum or plasma 3.5 3.4-5.0 albumin measurement albumin measurement (mass/volume) (mass/volume) Serum carbon dioxide 11/02/2017 N2N/CCD Import Serum carbon 27 21-32 measurement dioxide measurement RDW RBC Auto-Rto 11/02/2017 N2N/CCD Import RDW RBC Auto-Rto 16.4 High 11.7-14.4 RDW RBC Auto 11/02/2017 N2N/CCD Import RDW RBC Auto 48.3 High 3-47 Potassium SerPl-sCnc 11/02/2017 N2N/CCD Import Potassium 3.8 3.5-5.1 SerPl-sCnc Neutrophils/leuk NFr 11/02/2017 N2N/CCD Import Neutrophils/leuk 66.1 40.4-72.8 Bld Auto NFr Bld Auto Neutrophils # Bld 11/02/2017 N2N/CCD Import Neutrophils # Bld 8.95 High 1.8-7.0 Auto Auto Monocytes/leuk NFr 11/02/2017 N2N/CCD Import Monocytes/leuk NFr 6.8 4.3- 13.2 Bld Auto Bld Auto Lab Report: 10/25/2017 N2N/CCD Import Alb/Glob 0.9 Comprehensive ratio Metabolic Panel Albumin 3.4 g/dL 3.4-5.0 BUN 9 mg/dL 7-18 BUN/Creat 12.8 ratio Bilirubin,Total 0.2 mg/dL 0.2-1.0 Calcium 9.1 mg/dL 8.5-10.1 Carbon Dioxide 27 mmol/L 21-32 Chloride 109 mmol/L High 98-107 Creatinine 0.7 mg/dL 0.6-1.3 Globulin 3.8 g/dL 1.9-4.3 Glom Filtration Rate, Estimate >60 mL/min >60 If >60 >60 Potassium 3.9 mmol/L 3.5-5.1 SGPT/Alt 29 U/L 12-78 Sgot/Ast 14 U/L Low 15-37 Sodium 142 mmol/L 136-145 Total Protein 7.2 g/dL 6.4-8.2 Unloinc 10/25/2017 N2N/CCD Import Unloinc See Note 48 Lab Report: CBC--10.6 09/30/2017 N2N/CCD Import Hematocrit 33.0 % Low 36.0-46.1 / 33 Hemoglobin 10.6 g/dL Low 11.6-15.8 Mean Cell Volume 84.8 fL 80.9-99.0 Mean Corpuscular HGB 27.2 pg 25.9-32.7 Mean Corpuscular HGB Conc 32.1 g/dL 30.8-34.3 Mean Platelet Volume 10.1 fL 8.9-12.4 Platelet Count 228 10*3/mm3 150-400 Red Blood Count 3.89 M/Ul Low 3.90-5.40 White Blood Count 17.9 10*3/mm3 High 3.1-10.7 Amorphous 09/25/2017 N2N/CCD Import Amorphous Small Negative sediment sediment detection in detection in urine sediment urine sediment by by light microscopy Bacteria 09/25/2017 N2N/CCD Import Bacteria Few None Seen detection in detection in urine sediment urine sediment by light micr by light microscopy Color Ur 09/25/2017 N2N/CCD Import Color Ur DK Yellow Yellow Epithelial cells 09/25/2017 N2N/CCD Import Epithelial Many None Seen detection in cells urine sediment detection in by li urine sediment by light microscopy Ketones Ur 09/25/2017 N2N/CCD Import Ketones Ur Negative Negative Strip.auto-mCnc Strip.auto-mCn c Leukocyte 09/25/2017 N2N/CCD Import Leukocyte Negative Negative esterase Ur Ql esterase Ur Ql Strip.auto Strip.auto Nitrite Ur Ql 09/25/2017 N2N/CCD Import Nitrite Ur Ql Negative Negative Strip.auto Strip.auto Lab Report: 09/25/2017 N2N/CCD Import Urine Small Abnormal Negative Urinalysis With Bilirubin - Microscopic Dipstick Urine Blood Small Abnormal Negative Urine Color DK Yellow Yellow Urine Glucose - Dipstick Negative Negative Urine Ketone Negative Negative Urine Leuk Esterase Negative Negative Urine Nitrite - Dipstick Negative Negative Urine Specific [place] 1.025 1.010-1.030 Urine Urobilinogen - Dipstick 0.2 E.U./DL 0.2-1.0 Lab Report: Type 09/25/2017 N2N/CCD Import Patient Blood Type O Pos And Screen--O Pos Lab Report: CBC 09/25/2017 N2N/CCD Import Hematocrit 43.2 % 36.0-46.1 Hemoglobin 14.1 g/dL 11.6-15.8 Mean Cell Volume 81.8 fL 80.9-99.0 Mean Corpuscular HGB 26.7 pg 25.9-32.7 Mean Corpuscular HGB Conc 32.6 g/dL 30.8-34.3 Mean Platelet Volume 9.9 fL 8.9-12.4 Platelet Count 252 10*3/mm3 150-400 Red Blood Count 5.28 M/Ul 3.90-5.40 White Blood Count 11.7 10*3/mm3 High 3.1-10.7 pH Ur Strip.auto 09/25/2017 N2N/CCD Import pH Ur Strip.auto 6.0 Low 6.5- 7.5 Urobilinogen Ur 09/25/2017 N2N/CCD Import Urobilinogen Ur 0.2 0.2-1.0 Strip-aCnc Strip-aCnc Urine total 09/25/2017 N2N/CCD Import Urine total Small High Negative bilirubin bilirubin detection by detection by automated test automated test strip Urine hemoglobin 09/25/2017 N2N/CCD Import Urine hemoglobin Small High Negative detection by detection by automated test automated test strip strip Urine glucose 09/25/2017 N2N/CCD Import Urine glucose Negative Negative measurement by measurement by automated test automated test strip strip (mass/volume) Urine appearance 09/25/2017 N2N/CCD Import Urine appearance SL Cloudy Clear determination determination Specific gravity 09/25/2017 N2N/CCD Import Specific gravity 1.025 1.010- 1.03 of Urine by of Urine by 0 Automated test Automated test strip strip Prot Ur 09/25/2017 N2N/CCD Import Prot Ur 30 High Negative Strip.auto-mCnc Strip.auto-mCnc Serum or plasma 09/02/2017 N2N/CCD Import Serum or plasma 330.0 ethanol ethanol measurement measurement (mass/volume) (mass/volume) Urine human 08/25/2017 N2N/CCD Import Urine human Negative Negative chorionic chorionic gonadotropin (hCG) gonadotropin (hCG) detection detection Screening urine 08/02/2017 N2N/CCD Import Screening urine Negative barbiturate barbiturate detection detection Urine amphetamines 08/02/2017 N2N/CCD Import Urine amphetamines Negative detection by detection by screening method screening method Urine 08/02/2017 N2N/CCD Import Urine Negative benzodiazepines benzodiazepines measurement by measurement by screening met screening method (mass/volume) Urine 08/02/2017 N2N/CCD Import Urine Negative benzoylecgonine benzoylecgonine detection by detection by screening metho screening method Urine cannabinoids 08/02/2017 N2N/CCD Import Urine cannabinoids Negative detection by detection by screening method screening method Urine drug screen 08/02/2017 N2N/CCD Import Urine drug screen * comment comment interpretation interpretation Urine methadone 08/02/2017 N2N/CCD Import Urine methadone Negative screen screen Urine opiates 08/02/2017 N2N/CCD Import Urine opiates Negative detection by detection by screening method screening method Lab Report: Ethyl 08/02/2017 N2N/CCD Import Cannabinoids Negative Alcohol--299, (Urine) Drugs Of Abuse-URI Lab Report: 06/26/2017 N2N/CCD Import Troponin-I < 0.015 Troponin-I ng/mL Lab Report: CBS 06/25/2017 N2N/CCD Import Eo% 4.6 % 0.0-6.6 W/Automated Diff Eos # 0.50 10*3/uL 0.0-0.5 Hematocrit 40.2 % 36.0-46.1 Hemoglobin 13.2 g/dL 11.6-15.8 Lymph % 27.5 % 20.0-42.0 Mean Cell Volume 83.4 fL 80.9-99.0 Mean Corpuscular HGB 27.4 pg 25.9-32.7 Mean Corpuscular HGB Conc 32.8 g/dL 30.8-34.3 Mean Platelet Volume 10.0 fL 8.9-12.4 [place] % 6.0 % 4.3-13.2 Neut% 61.5 % 40.4-72.8 Platelet Count 273 10*3/mm3 150-400 Red Blood Count 4.82 M/Ul 3.90-5.40 Red Cell Distri Width SD 48.8 fL High 3-47 White Blood Count 10.9 10*3/mm3 High 3.1-10.7 Lab Report: Ua 04/11/2017 N2N/CCD Import Urine Bilirubin - Negative Negative RFX Micro Dipstick Culture II Urine Blood Negative Negative Urine Color Straw Yellow Urine Glucose - Dipstick Negative Negative Urine Ketone Negative Negative Urine Leuk Esterase Negative Negative Urine Nitrite - Dipstick Negative Negative Urine Specific [place] <=1.005 Low 1.010-1.030 Urine Urobilinogen - Dipstick 0.2 E.U./DL 0.2-1.0 Lab Report: CBS W/Automated Diff, 03/31/2017 N2N/CCD Import Alb/Glob 1.0 ratio D-Dimer, Quantit Albumin 3.6 g/dL 3.4-5.0 BUN 9 mg/dL 7-18 BUN/Creat 12.8 ratio Calcium 8.5 mg/dL 8.5-10.1 Carbon Dioxide 24 mmol/L 21-32 Chloride 107 mmol/L 98-107 Creatinine 0.7 mg/dL 0.6-1.3 Eo% 6.8 % High 0.0-6.6 Eos # 0.69 10*3/uL High 0.0-0.5 Globulin 3.5 g/dL 1.9-4.3 Glom Filtration Rate, Estimate >60 mL/min >60 Hematocrit 39.5 % 36.0-46.1 Hemoglobin 12.7 g/dL 11.6-15.8 If >60 >60 Lymph % 33.4 % 20.0-42.0 Mean Cell Volume 83.7 fL 80.9-99.0 Mean Corpuscular HGB 26.9 pg 25.9-32.7 Mean Corpuscular HGB Conc 32.2 g/dL 30.8-34.3 Mean Platelet Volume 9.4 fL 8.9-12.4 [place] % 7.0 % 4.3-13.2 Neut% 52.3 % 40.4-72.8 Platelet Count 274 10*3/mm3 150-400 Potassium 3.5 mmol/L 3.5-5.1 Red Blood Count 4.72 M/Ul 3.90-5.40 Red Cell Distri Width SD 48.1 fL High 3-47 SGPT/Alt 39 U/L 12-78 Sgot/Ast 20 U/L 15-37 Sodium 141 mmol/L 136-145 Total Protein 7.1 g/dL 6.4-8.2 Troponin-I < 0.015 ng/mL White Blood Count 10.1 10*3/mm3 3.1-10.7 Lab Report: BMP, LDL--126, Mg, Alt, 01/03/2017 N2N/CCD Import Alt 27 U/L 7-52 A1c--5.9 BUN/Creatinine Ratio 15.1 8-20 Blood Urea Nitrogen 11 mg/dL 6-24 Calcium 9.8 mg/dL 8.6-10.3 Chloride 105 mmol/L 101-111 Cholesterol [Mass/volume] in Serum or Plasma 234 mg/dL Cholesterol in HDL [Mass/volume] in Serum or Plasma 52.5 mg/dL Cholesterol in LDL [Mass/volume] in Serum or Plasma 126 mg/dL Co2 Carbon Dioxide 29 mmol/L 22-32 Creatinine 0.73 mg/dL 0.51-0.95 Egfr 110.9 (?) >60 Egfr Non- 86.2 (?) >60 Hemoglobin A1c/Hemoglobin.total in Blood 5.9 % Less than 6.0 Potassium 3.9 mmol/L 3.5-5.0 Sodium 140 mmol/L 133-145 Triglyceride [Mass/volume] in Serum or Plasma 276 mg/dL Office Visit: Ov: Follow Up, 01/03/2017 N2N/CCD Import Urinalysis 5.0 Prediabetes, labs Urinalysis 1.020 Urinalysis yellow Urinalysis negative Urinalysis negative Urinalysis negative Urinalysis negative Urinalysis negative Urinalysis negative Urinalysis negative Lab Report: (P) CBS W/Automated Diff, 07/26/2016 N2N/CCD Import Eo% 5.9 % 0.0-6.6 Slide Review Lymph % 23.0 % 17.0-46.1 [place] % 7.5 % 4.3-13.2 Neut% 63.1 % 40.4-72.8 Lab Report: CBS W/Automated Diff, 07/26/2016 N2N/CCD Import Alb/Glob 1.0 ratio Slide Review, DI Albumin 3.8 g/dL 3.4-5.0 BUN 10 mg/dL 7-18 BUN/Creat 12.5 ratio Calcium 9.2 mg/dL 8.5-10.1 Carbon Dioxide 28 mmol/L 21-32 Chloride 108 mmol/L High 98-107 Creatinine 0.8 mg/dL 0.6-1.3 Eos # 0.74 10*3/uL High 0.0-0.5 Globulin 3.8 g/dL 1.9-4.3 Glom Filtration Rate, Estimate >60 mL/min >60 Hematocrit 39.1 % 36.0-46.1 Hemoglobin 12.5 g/dL 11.6-15.8 If >60 >60 Mean Cell Volume 83.9 fL 80.9-99.0 Mean Corpuscular HGB 26.8 pg 25.9-32.7 Mean Corpuscular HGB Conc 32.0 g/dL 30.8-34.3 Mean Platelet Volume 10.1 fL 8.9-12.4 Platelet Count 302 10*3/mm3 155-360 Potassium 3.5 mmol/L 3.5-5.1 Red Blood Count 4.66 M/Ul 3.90-5.40 Red Cell Distri Width SD 50.1 fL High 3-47 SGPT/Alt 54 U/L 12-78 Sgot/Ast 30 U/L 15-37 Sodium 141 mmol/L 136-145 Total Protein 7.6 g/dL 6.4-8.2 Troponin-I < 0.015 ng/mL White Blood Count 12.6 10*3/mm3 High 3.1-10.7 Laboratory test 06/27/2016 [facility] Pathology See Note [address] Specimen [place], [place] [id number] [phone] Lab Report: 06/16/2016 N2N/CCD Import Triglyceride 195 mg/dL High 0-149 Lipid Panel: [Mass/volume] in LDL--106, Serum or Plasma A1c--6.0, Alt VLDL Cholesterol Alfred 39 mg/dL 5-40 Lab Report: Lipid 06/16/2016 N2N/CCD Import Alt (SGPT) 30 U/L 0-32 Panel: LDL--106, A1c--6.0, Alt Lab Report: Lipid 06/16/2016 N2N/CCD Import Cholesterol 198 mg/dL 100- 199 Panel: LDL--106, [Mass/volume] in A1c--6.0, Alt Serum or Plasma Cholesterol in HDL [Mass/volume] in Serum or Plasma 52 mg/dL >39 Cholesterol in LDL [Mass/volume] in Serum or Plasma 107 mg/dL High 0-99 Lab Report: Lipid 06/16/2016 N2N/CCD Import Hemoglobin 6.0 % High 4.8- 5.6 Panel: LDL--106, A1c/Hemoglobin.total in A1c--6.0, Alt Blood Lab Report: 08/11/2015 N2N/CCD Import Troponin-I < 0.015 Troponin-I ng/mL Lab Report: CBS 08/10/2015 N2N/CCD Import Alb/Glob 0.9 W/Automated Diff, ratio Comprehensive Me Albumin 3.3 g/dL Low (3.4-5.0) Alkaline Phosphatase 86 U/L (45-117) BUN 10 mg/dL (7-18) BUN/Creat 10.0 ratio Bilirubin,Total 0.2 mg/dL (0.2-1.0) CK 60 U/L (26-192) Calcium 9.0 mg/dL (8.5-10.1) Carbon Dioxide 30 mmol/L (21-32) Chloride 107 mmol/L (98-107) Creatinine 1.0 mg/dL (0.6-1.3) Eo% 1.3 % (0.0-6.6) Eos # 0.11 K/uL (0.0-0.5) Globulin 3.7 (1.9-4.3) Glom Filtration Rate, Estimate >60 mL/min (>60) Hematocrit 38.0 % (36.0-46.1) Hemoglobin 12.0 g/dL (11.6-15.8) If >60 mL/min (>60) Lipase 162 U/L (73-393) Lymph # 1.72 10*3/mm3 Low (1.8-7.0) Lymph % 20.4 % (17.0-46.1) Mean Cell Volume 86.0 fL (80.9-99.0) Mean Corpuscular HGB 27.1 pg (25.9-32.7) Mean Corpuscular HGB Conc 31.6 g/dL (30.8-34.3) Mean Platelet Volume 9.6 fL (8.9-12.4) [place] # 0.69 10*3/mm3 (0.3-0.9) [place] % 8.2 % (4.3-13.2) Neut# 5.88 K/uL (1.0-7.0) Neut% 69.9 % (40.4-72.8) Platelet Count 289 10*3/mm3 (155-360) Potassium 3.6 mmol/L (3.5-5.1) Red Blood Count 4.42 M/Ul (3.90-5.40) Red Cell Distri Width %CV 15.9 % High (11.7-14.4) Red Cell Distri Width SD 49.0 fL High (3-47) SGPT/Alt 70 U/L (12-78) Sgot/Ast 23 U/L (15-37) Sodium 142 mmol/L (136-145) Total Protein 7.0 g/dL (6.4-8.2) Troponin-I < 0.015 ng/mL White Blood Count 8.4 10*3/mm3 (3.1-10.7) Lab Report: Urine HCG 08/10/2015 N2N/CCD Import Urine Bilirubin Negative (Negative) (Qualitative), Urine - Dipstick Screen Urine Blood Negative (Negative) Urine Color Yellow (Yellow) Urine Glucose - Dipstick Negative (Negative) Urine Ketone Negative mg/dL (Negative) Urine Leuk Esterase Negative (Negative) Urine Nitrite - Dipstick Negative (Negative) Urine PH 6.0 Low (6.5-7.5) Urine Specific [place] 1.025 (1.010-1.030) Urine Urobilinogen - Dipstick 0.2 (0.2-1.0) Laboratory test finding 05/26/2015 N2N/CCD Import Cholesterol Level 214 < 200 Estimated Average Glucose (eAG) 114 Estradiol (E2) Level 97.9 Follicle Stimulating Hormone 3.3 HDL Cholesterol 55 > 40 Hemoglobin A1c 5.6 4.2-6.3 LDL Cholesterol, Calculated 95 < 100 Luteinizing Hormone 2.3 Progesterone Level 13.6 . Prolactin 5.8 Thyroid Stimulating Hormone (TSH) 1.00 0.36-3.74 Triglycerides Level 322 < 150 Lab Report: Stool 04/29/2015 N2N/CCD Import Shiga Toxin 1 Antigen See Note Culture Stool Culture See Note Laboratory test 04/29/2015 N2N/CCD Import Cryptosporidium Negative For finding Antigen Cryptosporidium Specific Antigen Giardia Antigen (Jsoe) Negative For Giardia Specific Antigen. Shiga Toxin Test Shiga Toxin 2 Not Detected Stool Culture Organism: No Enteric Pathogens Isolated Lab Report: Ova + 04/29/2015 N2N/CCD Import Cryptosporidium Specific See Note Parasite Antigen Ag Screen Giardia Specific Antigen See Note Laboratory test 04/28/2015 N2N/CCD Import Clostridium difficile Negative For finding Toxin A&B (M) C. Difficile Toxin A/B. Laboratory test 04/24/2015 N2N/CCD Import Alanine 28 12-78 finding Aminotransferase (Alt/SGPT) Albumin 3.9 3.4-5.0 Albumin/Globulin Ratio 1.3 Alkaline Phosphatase 82 45-117 Anion Gap 11 8-16 Aspartate Amino Transf (Ast/Sgot) 12 Low 15-37 BUN/Creatinine Ratio 14.4 Basophils # (Auto) 0.03 0.0-0.1 Basophils (%) (Auto) 0.3 0.0-1.1 Blood Urea Nitrogen 13 7-18 Calcium Level 9.2 8.5-10.1 Carbon Dioxide Level 25 21-32 Chloride Level 105 98-107 Creatinine 0.9 0.6-1.3 Eosinophils # (Auto) 0.34 0.0-0.5 Eosinophils (%) (Auto) 3.5 0.0-6.6 Globulin 3.0 1.9-4.3 Glucose Screen 85 74-106 Hematocrit 39.0 36.0-46.1 Hemoglobin 12.1 11.6-15.8 Lymphocytes # (Auto) 2.52 1.8-7.0 Lymphocytes (%) (Auto) 25.7 17.0-46.1 Mean Corpuscular Hemoglobin 26.3 25.9-32.7 Mean Corpuscular Hemoglobin Concent 31.0 30.8-34.3 Mean Corpuscular Volume 84.8 80.9-99.0 Mean Platelet Volume 10.4 8.9-12.4 Monocytes # (Auto) 0.67 0.3-0.9 Monocytes (%) (Auto) 6.8 4.3-13.2 Neutrophils # (Auto) 6.23 1.0-7.0 Neutrophils (%) (Auto) 63.7 40.4-72.8 Platelet Count 320 155-360 Potassium Level 4.5 3.5-5.1 RDW Coefficient of Variation 15.5 High 11.7-14.4 Red Blood Count 4.60 3.90-5.40 Red Cell Distribution Width 47.5 High 3-47 Sodium Level 141 136-145 Total Bilirubin 0.3 0.2-1.0 Total Protein 6.9 6.4-8.2 White Blood Count 9.8 3.1-10.7 Lab Report: CMP, CBS W/Diff 04/24/2015 N2N/CCD Import BUN 13 mg/dL (7-18 ) BUN/Creat 14.4 ratio Bilirubin,Total 0.3 mg/dL (0.2-1.0) Calcium 9.2 mg/dL (8.5-10.1) Carbon Dioxide 25 mmol/L (21-32) Chloride 105 mmol/L (98-107) Creatinine 0.9 mg/dL (0.6-1.3) Eo% 3.5 % (0.0-6.6) Eos # 0.34 K/uL (0.0-0.5) Globulin 3.0 (1.9-4.3) Glom Filtration Rate, Estimate >60 mL/min (>60) Hematocrit 39.0 % (36.0-46.1) Hemoglobin 12.1 g/dL (11.6-15.8) If >60 mL/min (>60) Lymph # 2.52 10*3/mm3 (1.8-7.0) Lymph % 25.7 % (17.0-46.1) Mean Cell Volume 84.8 fL (80.9-99.0) Mean Corpuscular HGB 26.3 pg (25.9-32.7) Mean Corpuscular HGB Conc 31.0 g/dL (30.8-34.3) Mean Platelet Volume 10.4 fL (8.9-12.4) [place] # 0.67 10*3/mm3 (0.3-0.9) [place] % 6.8 % (4.3-13.2) Neut# 6.23 K/uL (1.0-7.0) Neut% 63.7 % (40.4-72.8) Platelet Count 320 10*3/mm3 (155-360) Potassium 4.5 mmol/L (3.5-5.1) Red Blood Count 4.60 M/Ul (3.90-5.40) Red Cell Distri Width %CV 15.5 % High (11.7-14.4) Red Cell Distri Width SD 47.5 fL High (3-47) SGPT/Alt 28 U/L (12-78) Sgot/Ast 12 U/L Low (15-37) Sodium 141 mmol/L (136-145) Total Protein 6.9 g/dL (6.4-8.2) White Blood Count 9.8 10*3/mm3 (3.1-10.7) Office Visit: Ov: constipation 12/29/2014 N2N/CCD Import Urinalysis yellow Urinalysis negative Urinalysis negative Urinalysis negative Urinalysis negative Urinalysis negative Urinalysis negative Urinalysis negative Urinalysis 1.025 Urinalysis 5.0 Lab Report: Comprehensive 10/30/2014 N2N/CCD Import Alb/Glob 1.1 ratio Metabolic Panel, Lipase, Albumin 3.9 g/dL (3.4-5.0) Alkaline Phosphatase 75 U/L (45-117) BUN 13 mg/dL (7-18) BUN/Creat 16.2 ratio Bilirubin,Total 0.2 mg/dL (0.2-1.0) Calcium 9.2 mg/dL (8.5-10.1) Carbon Dioxide 27 mmol/L (21-32) Chloride 107 mmol/L (98-107) Creatinine 0.8 mg/dL (0.6-1.3) Eo% 1.5 % (0.0-6.6) Eos # 0.18 K/uL (0.0-0.5) Globulin 3.7 (1.9-4.3) Glom Filtration Rate, Estimate >60 mL/min (>60) Hematocrit 38.2 % (36.0-46.1) Hemoglobin 12.1 g/dL (11.6-15.8) If >60 mL/min (>60) Lipase 113 U/L (73-393) Lymph # 2.79 10*3/mm3 (0.8-3.4) Lymph % 22.7 % (17.0-46.1) Mean Cell Volume 84.7 fL (80.9-99.0) Mean Corpuscular HGB 26.8 pg (25.9-32.7) Mean Corpuscular HGB Conc 31.7 g/dL (30.8-34.3) Mean Platelet Volume 9.9 fL (8.9-12.4) [place] # 0.75 10*3/mm3 (0.3-0.9) [place] % 6.1 % (4.3-13.2) Neut# 8.52 K/uL High (1.0-7.0) Neut% 69.3 % (40.4-72.8) Platelet Count 311 10*3/mm3 (155-360) Potassium 3.9 mmol/L (3.5-5.1) Red Blood Count 4.51 M/Ul (3.90-5.40) Red Cell Distri Width %CV 15.5 % High (11.7-14.4) Red Cell Distri Width SD 47.3 fL High (3-47) SGPT/Alt 40 U/L (12-78) Sgot/Ast 17 U/L (15-37) Sodium 141 mmol/L (136-145) Total Protein 7.6 g/dL (6.4-8.2) White Blood Count 12.3 10*3/mm3 High (3.1-10.7) Lab Report: 10/30/2014 N2N/CCD Import Urine Bilirubin Negative (Negative ) Comprehensive - Dipstick Metabolic Panel, Lipase, Urine Blood Negative (Negative) Urine Color Yellow (Yellow) Urine Glucose - Dipstick Negative (Negative) Urine Ketone Negative mg/dL (Negative) Urine Leuk Esterase Negative (Negative) Urine Nitrite - Dipstick Negative (Negative) Urine PH 6.0 Low (6.5-7.5) Urine Specific [place] 1.025 (1.010-1.030) Urine Urobilinogen - Dipstick 0.2 (0.2-1.0) Lab Report: C. 09/29/2014 [email or web address] Import Cryptosporidium Specific See Note Difficile Toxin Ag A/B, Ova + Parasite Giardia Specific Antigen See Note Shiga Toxin 1 Antigen See Note Stool Culture See Note Lab Report: Urinalysis With 09/07/2014 [email or web address] Import Urine Bacteria Few Microscopic, Culture-- Urine Bilirubin - Dipstick Negative (Negative) Urine Blood Moderate High (Negative) Urine Color Straw (Yellow) Urine Culture See Note Urine Epithelial Cells Few Urine Glucose - Dipstick Negative (Negative) Urine Ketone Negative mg/dL (Negative) Urine Leuk Esterase Large High (Negative) Urine Nitrite - Dipstick Negative (Negative) Urine PH 6.0 Low (6.5-7.5) Urine RBC 2-5 (0-7) Urine Specific [place] <=1.005 Low (1.010-1.030) Urine Urobilinogen - Dipstick 0.2 (0.2-1.0) Lab Report: Liver 07/01/2014 [email or web address] Import Urine Bilirubin - Negative ( Negative) Function Tests, Dipstick Basic Metabolic Urine Blood Negative (Negative) Urine Color Yellow (Yellow) Urine Glucose - Dipstick Negative (Negative) Urine Ketone Negative mg/dL (Negative) Urine Leuk Esterase Negative (Negative) Urine Nitrite - Dipstick Negative (Negative) Urine PH 5.0 Low (6.5-7.5) Urine Specific [place] >=1.030 (1.010-1.030) Urine Urobilinogen - Dipstick 0.2 (0.2-1.0) Lab Report: Liver Function Tests, 07/01/2014 [email or web address] Import Alb/Glob 1.2 ratio Basic Metabolic Albumin 3.6 g/dL (3.5-5.0) Alkaline Phosphatase 67 U/L (50-136) BUN 13 mg/dL (5-23) BUN/Creat 13.0 ratio Bilirubin,Direct < 0.1 mg/dL Low (0.1-0.4) Bilirubin,Indirect 0.2 mg/dL (0.0-0.9) Bilirubin,Total 0.3 mg/dL (0.2-1.2) Calcium 9.0 mg/dL (8.5-10.1) Carbon Dioxide 26 mEq/L (18-29) Chloride 110 mmol/L High (98-107) Creatinine 1.0 mg/dL (0.5-1.4) Eo% 0.3 % (0.0-6.6) Eos # 0.04 K/uL (0.0-0.5) Globulin 3.1 (1.9-4.3) Glom Filtration Rate, Estimate >60 mL/min (>60) Hematocrit 33.2 % Low (36.0-46.1) Hemoglobin 10.7 g/dL Low (11.6-15.8) If >60 mL/min (>60) Lipase 88 U/L (28-380) Lymph # 2.25 10*3/mm3 (0.8-3.4) Lymph % 17.0 % (17.0-46.1) Mean Cell Volume 85.3 fL (80.9-99.0) Mean Corpuscular HGB 27.5 pg (25.9-32.7) Mean Corpuscular HGB Conc 32.2 g/dL (30.8-34.3) Mean Platelet Volume 9.8 fL (8.9-12.4) [place] # 1.07 10*3/mm3 High (0.3-0.9) [place] % 8.1 % (4.3-13.2) Neut# 9.89 K/uL High (1.0-7.0) Neut% 74.4 % High (40.4-72.8) Platelet Count 271 10*3/mm3 (155-360) Potassium 3.8 mmol/L (3.5-5.1) Red Blood Count 3.89 M/Ul Low (3.90-5.40) Red Cell Distri Width %CV 14.9 % High (11.7-14.4) Red Cell Distri Width SD 45.1 fL (3-47) SGPT/Alt 55 U/L (30-65) Sgot/Ast 33 U/L (16-40) Sodium 143 mmol/L (136-145) Total Protein 6.7 g/dL (6.3-8.0) White Blood Count 13.3 10*3/mm3 High (3.1-10.7) Lab Report: Urine HCG 06/24/2014 N2N/CCD Import Urine Negative (Negative ) (Qualitative--neg), Bilirubin - Urine SC Dipstick Urine Blood Negative (Negative) Urine Color Yellow (Yellow) Urine Glucose - Dipstick Negative (Negative) Urine Ketone Negative mg/dL (Negative) Urine Leuk Esterase Negative (Negative) Urine Nitrite - Dipstick Negative (Negative) Urine PH 6.0 Low (6.5-7.5) Urine Specific [place] 1.015 (1.010-1.030) Urine Urobilinogen - Dipstick 0.2 (0.2-1.0) Lab Report: CBS W/Automated Diff, 06/24/2014 N2N/CCD Import Alb/Glob 1.0 ratio Comprehensive Me Albumin 3.7 g/dL (3.5-5.0) Alkaline Phosphatase 80 U/L (50-136) BUN 9 mg/dL (5-23) BUN/Creat 10.0 ratio Bilirubin,Total 0.3 mg/dL (0.2-1.2) Calcium 9.2 mg/dL (8.5-10.1) Carbon Dioxide 27 mEq/L (18-29) Chloride 108 mmol/L High (98-107) Creatinine 0.9 mg/dL (0.5-1.4) Eo% 2.7 % (0.0-6.6) Eos # 0.26 K/uL (0.0-0.5) Globulin 3.8 (1.9-4.3) Glom Filtration Rate, Estimate >60 mL/min (>60) Hematocrit 39.2 % (36.0-46.1) Hemoglobin 12.6 g/dL (11.6-15.8) If >60 mL/min (>60) Lymph # 2.60 10*3/mm3 (0.8-3.4) Lymph % 26.8 % (17.0-46.1) Mean Cell Volume 83.8 fL (80.9-99.0) Mean Corpuscular HGB 26.9 pg (25.9-32.7) Mean Corpuscular HGB Conc 32.1 g/dL (30.8-34.3) Mean Platelet Volume 9.5 fL (8.9-12.4) [place] # 0.65 10*3/mm3 (0.3-0.9) [place] % 6.7 % (4.3-13.2) Neut# 6.14 K/uL (1.0-7.0) Neut% 63.4 % (40.4-72.8) Platelet Count 276 10*3/mm3 (155-360) Potassium 3.7 mmol/L (3.5-5.1) Red Blood Count 4.68 M/Ul (3.90-5.40) Red Cell Distri Width %CV 14.7 % High (11.7-14.4) Red Cell Distri Width SD 44.0 fL (3-47) SGPT/Alt 34 U/L (30-65) Sgot/Ast 20 U/L (16-40) Sodium 141 mmol/L (136-145) Total Protein 7.5 g/dL (6.3-8.0) White Blood Count 9.7 10*3/mm3 (3.1-10.7) Office Visit: Ov: right abd. pain 06/09/2014 N2N/CCD Import Urinalysis yellow Urinalysis negative Urinalysis negative Urinalysis negative Urinalysis negative Urinalysis negative Urinalysis negative Urinalysis negative Urinalysis 1.025 Urinalysis 5.0 Lab Report: CBC, Comprehensive 06/09/2014 N2N/CCD Import Alb/Glob 0.9 ratio Metabolic Panel, Albumin 3.5 g/dL (3.5-5.0) Alkaline Phosphatase 82 U/L (50-136) BUN 11 mg/dL (5-23) BUN/Creat 18.3 ratio Bilirubin,Total 0.3 mg/dL (0.2-1.2) Calcium 9.1 mg/dL (8.5-10.1) Carbon Dioxide 27 mEq/L (18-29) Chloride 105 mmol/L (98-107) Creatinine 0.6 mg/dL (0.5-1.4) Globulin 3.7 (1.9-4.3) Glom Filtration Rate, Estimate >60 mL/min (>60) If >60 mL/min (>60) Potassium 4.1 mmol/L (3.5-5.1) SGPT/Alt 30 U/L (30-65) Sgot/Ast 17 U/L (16-40) Sodium 137 mmol/L (136-145) Total Protein 7.2 g/dL (6.3-8.0) Lab Report: CBC, 06/09/2014 N2N/CCD Import Hematocrit 37.0 % (36.0-46.1 ) Comprehensive Metabolic Panel, Hemoglobin 12.0 g/dL (11.6-15.8) Mean Cell Volume 84.7 fL (80.9-99.0) Mean Corpuscular HGB 27.5 pg (25.9-32.7) Mean Corpuscular HGB Conc 32.4 g/dL (30.8-34.3) Mean Platelet Volume 9.4 fL (8.9-12.4) Platelet Count 293 10*3/mm3 (155-360) Red Blood Count 4.37 M/Ul (3.90-5.40) Red Cell Distri Width %CV 14.9 % High (11.7-14.4) Vitamin D,25-Hydroxy 19.9 ng/mL Low (30.0-100.0) White Blood Count 9.4 10*3/mm3 (3.1-10.7) Laboratory test finding 01/22/2014 [facility] Ferritin 67.7 ng/mL 3-105 [address] [place] [address] [phone] Office Visit: Ov: 01/15/2014 N2N/CCD Import Chemistry 3.8 mmol/L shaking, labs Chemistry 0.8 mg/dL Chemistry >60 Chemistry 9.1 mg/dL Chemistry 1.23 u[iU]/mL Hematology 12.4 g/dL Hematology 38.1 % Hematology 317 10*3/mm3 Laboratory test 01/15/2014 [facility] Thyroid Stim 1.23 uIU/mL 0.49-4.67 finding [address] [place] [address] [phone] Basic Metabolic 01/15/2014 [facility] Glucose 85 mg/dL 76-115 Panel [address] [place] [address] [phone] BUN 13 mg/dL 5-23 Creatinine 0.8 mg/dL 0.5-1.4 Glom Filtration Rate, Estimate >60 mL/min >60 If >60 mL/min >60 50 BUN/Creat 16.2 ratio Sodium 142 mmol/L 136-145 Potassium 3.8 mmol/L 3.5-5.1 Chloride 109 mmol/L High 98-107 Carbon Dioxide 27 mEq/L 18-29 Anion Gap 10 mEq/L 8-16 Calcium 9.1 mg/dL 8.5-10.1 CBS W/Automated 01/15/2014 [facility] White Blood 14.9 K/uL High 3.1-10.[address] [place], [place] [id number] [phone] Red Blood Count 4.52 M/uL 3.90-5.40 Hemoglobin 12.4 gm/dL 11.6-15.8 Hematocrit 38.1 % 36.0-46.1 Mean Cell Volume 84.3 fl 80.9-99.0 Mean Corpuscular HGB 27.4 pg 25.9-32.7 Mean Corpuscular HGB Conc 32.5 g/dL 30.8-34.3 Platelet Count 317 K/uL 155-360 Red Cell Distri Width SD 45.1 fl 3-47 Red Cell Distri Width %CV 14.9 % High 11.7-14.4 Mean Platelet Volume 9.8 fL 8.9-12.4 Neut% 75.6 % High 40.4-72.8 Lymph % 16.4 % Low 17.0-46.1 [place] % 7.2 % 4.3-13.2 Eo% 0.5 % 0.0-6.6 Bas% 0.3 % 0.0-1.1 Neut# 11.28 K/uL High 1.0-7.0 Lymph # 2.44 K/uL 0.8-3.4 [place] # 1.07 K/uL High 0.3-0.9 Eos # 0.08 K/uL 0.0-0.5 Baso # 0.04 K/uL 0.0-0.1 Lab Report: 12/02/2013 N2N/CCD Import Magnesium 1.8 mg/dL (1.7-2.3) Magnesium--1.8 Office Visit: Ov: LBP, 08/07/2013 N2N/CCD Import Urinalysis 6.0 set up Abd xray Urinalysis 1.020 Urinalysis negative Urinalysis negative Urinalysis negative Urinalysis negative Urinalysis negative Urinalysis negative Urinalysis negative Urinalysis yellow Lab Report: Throat 10/03/2012 N2N/CCD Import Streptococcus pyogenes See Note Strep Screen--neg [Presence] in Throat by Organism specific culture 1 CHEST PAIN 2 <=0.49 ug/mL - Low likelihood of DIC, DVT or Pulmonary Embolism >0.49 ug/mL - Additional testing should be done to rule out DIC, DVT, or Pulmonary embolism as clinically indicated. ([facility] has established a 97.89% negative predictive value for thrombotic disease when a cutoff value of 0.5 ug/mL is used.) 3 HEMORRHOIDS;BLOOD IN STOOL [id number] 4 FIRST MORNING SPECIMENS GENERALLY CONTAIN THE HIGHEST CONCENTRATION OF HCG AND ARE RECOMMENDED FOR EARLY DETECTION OF . Method: Quidel QuickVue One-Step Immunoassay 5 CONSULT 08/22/18 11:30 6 NOTE: A NON-REACTIVE RESULT INDICATES THAT HIV 1/2 ANTIBODIES HAVE NOT BEEN FOUND IN THIS PATIENT SPECIMEN. A NON-REACTIVE RESULT, HOWEVER, DOES NOT PRECLUDE PREVIOUS EXPOSURE OF INFECTION WITH HIV 1/2. Method: Uni-Gold Recombigen HIV 1/2 Rapid Immunoassay [employer] * [place] LAW PROHIBITS THE REDISCLOSURE OF THIS RESULT * * TO ANY UNAUTHORIZED GREEN PARTY. * 7 INFCE Result Units: s/co ratio Negative: < 0.8 Indeterminate: 0.8 - 0.9 Positive: > 0.9 The CDC recommends that a positive HCV antibody result be followed up with a HCV Nucleic Acid Amplification test (749718). Performed at: RN - [facility] [address] [id number] Bad Cloth Checker: Dina Burgess MD, Phone: [phone] 8 R19.4,R10.31 9 Method: Sediplast Modified Westergren 10 Results verified by repeat testing This test was developed and its performance characteristics determined by [facility]. It has not been cleared or approved by the Food and Drug Administration. 11 Performed at: [address] [id number] Bad Cloth Checker: Dina Burgess MD, Phone: [phone] Performed at: [address] [id number] Bad Cloth Checker: Raymon Ramsey MD, Phone: [phone] 12 INFCE Result Units: %mean normal Abnormal <41 Equivocal 41 - 67 Normal >67 13 R19.4 K76.0 R63.4 14 This test was developed and its performance characteristics determined by [facility]. It has not been cleared or approved by the Food and Drug Administration. Performed at: [address] [id number] Bad Cloth Checker: Raymon Ramsey MD, Phone: [phone] 15 R19.4 K76.0 16 NEGATIVE FOR CRYPTOSPORIDIUM SPECIFIC ANTIGEN 17 NEGATIVE FOR GIARDIA SPECIFIC ANTIGEN. The specimen will be held for 5 days. Additional testing may be performed upon request if the antigen tests are negative, and the patient is still symptomatic or has traveled to an endemic region. Method: Alere Quik Chek Rapid Membrane Enzyme Immunoassay 18 NO ENTERIC PATHOGENS ISOLATED 19 ................................................... 20 INCLUDES TESTING FOR SALMONELLA, SHIGELLA, AEROMONAS, 21 PLESIOMONAS, CAMPYLOBACTER, AND E. COLI 0157:H7 22 ................................................... 23 YERSINIA AND VIBRIO ARE NOT ROUTINELY SCREENED FOR AND 24 SHOULD BE REQUESTED SEPARATELY 25 SHIGA TOXIN 1 NOT DETECTED 26 SHIGA TOXIN 2 NOT DETECTED Method: ImmunoCard STAT/EHEC Rapid Immunochromatographic Assay 27 Normal (<60 Droplets/HPF) 28 Normal (<100 Droplets/HPF) 29 INFCE Result Units: ug Elast./g Severe Pancreatic Insufficiency: <100 Moderate Pancreatic Insufficiency: 100 - 200 Normal: >200 30 Results verified by repeat testing Baseline (normal) 0.00 - 7.24 Elevated >7.24 An elevated result is indicative of the presence of fecal lactoferrin, a marker of intestinal inflammation. A normal result does not exclude the presence of intestinal inflammation. The test can be used as an in vitro diagnostic aid to distinguish patients with active inflammatory bowel disease (IBD) from those with non-inflammatory irritable bowel syndrome (IBS). Performed at: [address] [id number] Bad Cloth Checker: Dina Burgess MD, Phone: [phone] Performed at: [address] [id number] Bad Cloth Checker: Raymon Ramsey MD, Phone: [phone] 31 INFCE Result Units: s/co ratio Negative: < 0.8 Indeterminate: 0.8 - 0.9 Positive: > 0.9 The CDC recommends that a positive HCV antibody result be followed up with a HCV Nucleic Acid Amplification test (873224). Performed at: [address] [id number] Bad Cloth Checker: Dina Burgess MD, Phone: [phone] 32 Method: Sediplast Modified Westergren 33 F0 - No fibrosis 34 S2 - Moderate Steatosis 35 N1 - Borderline or probable NAM 36 Quantitative results of 10 biochemicals in combination with age, gender, height, and weight, are analyzed using a computational algorithm to provide a quantitative surrogate marker (0.0-1.0) of liver fibrosis (Metavir F0-F4), hepatic steatosis (0.0-1.0, S0-S3), and Non-Alcoholic Steato- Hepatitis (NAM) (0.0-0.75, N0-N2). The absence of steatosis (S<0.38) precludes the diagnosis of NAM. Fibrosis marker: In a study of 171 Non-Alcoholic Fatty Liver Disease (NAFLD) patients where 23% had significant NAFLD fibrosis (Metavir F2-F4) and 11% had cirrhosis by liver biopsy, a fibrosis result of >0.3 yielded a sensitivity of 83% and a specificity of 78% for the detection of significant fibrosis(1). Steatosis Marker: In a population of 744 patients (583 HCV, 18 HBV, 69 NAFLD, and 74 alcoholic disease patients), where 36% had significant steatosis (>5%) on a liver biopsy, a steatosis score >0.5 had a sensitivity of 71% and a specificity of 72% for identification of significant steatosis(2). NAM marker: In a population of 257 NAFLD patients, where 62% had at least some NAM by liver biopsy, a prediction of NAM had a sensitivity of 88% for identifying NAM and a specificity of 50%(3). 37 <0.21=Stage F0 - No fibrosis 0.21 - 0.27=Stage F0 - F1 0.27 - 0.31=Stage F1 - Portal fibrosis 0.31 - 0.48=Stage F1 - F2 0.48 - 0.58=Stage F2 - Bridging fibrosis with few septa 0.58 - 0.72=Stage F3 - Bridging fibrosis with many septa 0.72 - 0.74=Stage F3 - F4 >0.74=Stage F4 - Cirrhosis 38 < 0.30=S0 - No Steatosis 0.30 to 0.38=S0 - S1 0.38 to 0.48=S1 - Minimal Steatosis 0.48 to 0.57=S1 - S2 0.57 to 0.67=S2 - Moderate Steatosis 0.67 to 0.69=S2 - S3 > 0.69=S3 - Marked or Severe Steatosis 39 0.25=N0 - Not NAM 0.50=N1 - Borderline or probable NAM 0.75=N2 - NAM 40 NAM FibroSure is recommended for patients with suspected non-alcoholic fatty liver disease. It is not recommended for patients with other liver diseases. It is also not recommended in patients with Gilbert Disease, acute hemolysis, acute viral hepatitis, drug induced hepatitis, genetic liver disease, autoimmune hepatitis and/or extra- hepatic cholestasis. Any of these clinical situations may lead to inaccurate quantitative predictions of fibrosis. 41 This test was developed and its performance characteristics determined by [facility]. It has not been cleared or approved by the Food and Drug Administration. The FDA has determined that such clearance or approval is not necessary. For questions regarding this report please contact customer service at . References: 1. Ratziu V. et al. Diagnostic Value of Biochemical Markers (FibroTest) for the prediction of Liver Fibrosis in patients with Non-Alcoholic Fatty Liver Disease. BMC Gastroenterology 2006; 6:6. 2. Azalia Hinojosa. et al. The Diagnostic Value of Biomarkers (Steato Test) for the Prediction of Liver Steatosis. Comparative Hepatol. 2005; 4:10. 3. Azalia Hinojosa, Jessica Laughlin, et al. Diagnostic value of biochemical markers (NAM TEST) for the prediction of non alcohol steato hepatitis in patients with non- alcoholic fatty liver disease. BMC Gastroenterology 2006; 6:34 doi:[id number]/[id number]. 42 Negative 0 - 19 Weak Positive 20 - 30 Moderate to Strong Positive >30 43 Negative 0 - 19 Weak Positive 20 - 30 Moderate to Strong Positive >30 44 Negative 0 - 3 Weak Positive 4 - 10 Positive >10 Tissue Transglutaminase (tTG) has been identified as the endomysial antigen. Studies have demonstr- ated that endomysial IgA antibodies have over 99% specificity for gluten sensitive enteropathy. 45 Negative 0 - 5 Weak Positive 6 - 9 Positive >9 46 Performed at: - [facility] [id number] Bad Cloth Checker: Dina Burgess MD, Phone: [phone] Performed at: - [facility] [id number] Bad Cloth Checker: Raymon Ramsey MD, Phone: [phone] 47 Reference Guidelines*: Normal: ............. < 150 mg/dL Borderline High: .... 150-199 mg/dL High: ............... 200-499 mg/dL Very High: .......... > 500 mg/dL * Source: National Cholesterol Education Program (NCEP) 48 Instrument flagged sample for slide review. Less than 10% Bands seen, no other immature WBC's seen. RBC morphology essentially normal. Platelet estimate= Normal 49 RANDOM COLON BX RANDOM DUODENAL ESOPHAGEAL BX Hard copy of report to be sent by mail. Scanned report may be viewed in PCI 50 Note: Persistent reduction for 3 months or more in an eGFR <60 mL/min/1.73 m2 defines CKD. Patients with eGFR values >/=60 mL/min/1.73 m2 may also have CKD if evidence of persistent proteinuria is present. The original MDRD equation for estimated GFR is not valid for patients less than 18 years of age. Additional information may be found at www.kdoqi.org. Procedures Date Code Description Status 02/28/2019 61802 Anoscopy Completed 12/26/2018 07051 Sigmoidoscopy W/ Band Ligation(S) Completed 12/26/2018 59955 Sigmoidoscope With Biopsy Completed 12/26/2018 62520 EGD With Biopsy Completed 12/20/2018 34636 Anoscopy Completed 08/23/2018 36671 Repair Initial Inguinal Hernia/ Age 5 Or Over/Reducible Completed 06/21/2018 19541715 Colonoscopy Completed 06/21/2018 47526 Colonoscopy With Biopsy Completed 11/28/2017 66074 Radiology, Foot, Complete-3 Views Completed 11/28/2017 01195 Radiology, Ankle Complete Completed 11/16/2016 53748 Radiology, Tibia And Fibula 2 Views Completed 11/16/2016 64137 Radiology, Foot, Complete-3 Views Completed 11/16/2016 95405 Radiology, Ankle Complete Completed 11/01/2016 71330 Radiology, Ankle Complete Completed 11/01/2016 74414 Radiology, Foot, Complete-3 Views Completed 11/01/2016 29038 Radiology, Ankle Complete Completed 11/01/2016 22935 Radiology, Foot, Complete-3 Views Completed 08/15/2016 23012 Radiology, Foot, Complete-3 Views Completed 08/15/2016 06077 Radiology, Foot, Complete-3 Views Completed 06/27/2016 51053 Endoscopy Small Intestine W/Biopsy Completed 06/27/2016 29142 Colonoscopy With Biopsy Completed 06/27/2016 [id number] Colonoscopy Completed 04/25/2016 66532 Radiology, Foot, Complete-3 Views Completed 03/07/2016 37508 Application short leg cast (below knee to toes) Completed 02/16/2016 36554 Radiology, Foot, Complete-3 Views Completed 10/06/2015 06125 Radiology, Foot, Complete-3 Views Completed 07/21/2015 80825 Eye Exam New Patient Comprehensive Completed 05/05/2015 34389 Event Monitor Inter/Review Only Completed 03/24/2015 33672 Radiology, Foot, Complete-3 Views Completed 03/24/2015 70976 Radiology, Ankle Complete Completed 03/24/2015 10747 Radiology, Ankle Complete Completed 03/24/2015 39721 Radiology, Foot, Complete-3 Views Completed 03/17/2015 81254 Radiology, Foot, Complete-3 Views Completed 03/17/2015 62844 Radiology, Foot, Complete-3 Views Completed 11/11/2014 97823 Anesthesia, Repair Hernia Upper Abdomen Completed 06/30/2014 36621 Anesthesia, Upper Abdomen Surgery Not Otherwise Spec Completed 04/10/2014 02552 xray spine cervical min 4 views Completed 04/10/2014 86581 xray spine cervical min 4 views Completed 01/22/2014 54780 Echocardiogram Complete Completed 01/22/2014 94182 Event Monitor Inter/Review Only Completed 01/15/2014 05814 EKG-Tracing And Report Completed 03/27/2012 16681 Stress Test Interpre And Report Only Completed 03/27/2012 61162 Stress Test Physician Super Only Completed 03/27/2012 97654 Stress Test Physician Super Only Completed 03/27/2012 52232 Myocardial Imaging Tomographic Multiple Study AT Rest Completed Or Stress 03/26/2012 13568 EKG-Tracing And Report Completed 03/26/2012 92298 Radiology, Knee 3 Views Completed 05/02/2011 [id number] Colonoscopy Completed 07/20/2010 74415 Echocardiogram Complete Completed 07/20/2010 13619 Stress Test Interpre And Report Only Completed 07/20/2010 93090 Stress Test Physician Super Only Completed 06/04/2010 03138 EKG-Tracing And Report Completed 06/29/2009 67852 FX Metatarsal-Closed W/O Completed 05/16/1997 39653 Vaginal Delivery [employer] Completed 05/08/1997 82821 Non-Stress Test (NST) Completed 05/06/1997 34953 Non-Stress Test (NST) Completed 02/27/1997 43044 Non-Stress Test (NST) Completed 01/29/1997 70435 Non-Stress Test (NST) Completed 12/12/1996 93142 Non-Stress Test (NST) Completed Encounters Type Date Location Provider Dx Diagnosis Office Visit 02/28/2019 3:15p Baljeet Amado MD R07.89 Other chest pain R12 Heartburn K64.9 Unspecified hemorrhoids Office Visit 12/20/2018 8:30a Baljeet Amado MD R12 Heartburn K64.8 Other hemorrhoids K62.5 Hemorrhage of anus and rectum K57.30 Dvrtclos of lg int w/o perforation or abscess w/o bleeding K59.00 Constipation, unspecified Office Visit 12/05/2018 2:45p Surgical Office Man, K57.32 Dvtrcli of lg int Kevin, w/o perforation or MD,FACS abscess w/o bleeding K40.90 Unil inguinal hernia, w/o obst or gangr, not spcf as recur Office Visit 06/08/2018 4:30p CLARISSA Lewis MD R19.4 Change in bowel habit K57.33 Dvtrcli of lg int w/o perforation or abscess w bleeding R63.4 Abnormal weight loss K21.9 Gastro-esophageal reflux disease without esophagitis K76.0 Fatty (change of) liver, not elsewhere classified R10.31 Right lower quadrant pain Office Visit 05/14/2018 2:45p Orthopaedic Office Renae Gonzalez M25.571 Pain in right S., RPAC ankle and joints of right foot Office Visit 04/27/2018 3:15p CLARISSA Lewis MD R19.4 Change in bowel habit K57.33 Dvtrcli of lg int w/o perforation or abscess w bleeding R63.4 Abnormal weight loss K21.9 Gastro-esophageal reflux disease without esophagitis K76.0 Fatty (change of) liver, not elsewhere classified Office Visit 11/28/2017 1:30p Orthopaedic Office Maren Brown, M25.571 Pain in right PA ankle and joints of right foot Office Visit 12/14/2016 2:00p Orthopaedic Office Maren Brown, M79.662 Pain in left PA lower leg M25.572 Pain in left ankle and joints of left foot S80.12xD Contusion of left lower leg, subsequent encounter Office Visit 11/23/2016 1:30p Orthopaedic Cynthia R22.42 Localized Office Ryan Huynh swelling, mass and lump, left lower limb M79.662 Pain in left lower leg Office Visit 11/16/2016 1:30p Orthopaedic Office Kb Marie79.662 Pain in left Ryan Huynh lower leg M25.572 Pain in left ankle and joints of left foot S80.12xA Contusion of left lower leg, initial encounter Office Visit 11/01/2016 Orthopaedic Maren Brown, S93.402D Sprain of 10:30a Office PA unspecified ligament of left ankle, subs encntr Office Visit 08/15/2016 Orthopaedic Maren Brown, S93.402A Sprain of 2:00p Office PA unspecified ligament of left ankle, init encntr S82.54xA Nondisp fx of medial malleolus of right tibia, init Office Visit 07/06/2016 3:00p Baljeet Amado MD K57.30 Dvrtclos of lg int w/o perforation or abscess w/o bleeding K21.9 Gastro-esophageal reflux disease without esophagitis K31.84 Gastroparesis Office Visit 06/17/2016 4:00p Tung Arvizu MD R10.9 Unspecified abdominal pain K21.9 Gastro-esophageal reflux disease without esophagitis K57.30 Dvrtclos of lg int w/o perforation or abscess w/o bleeding Office Visit 04/25/2016 10:15a Orthopaedic Office Thad Lee, S92.224D Nondisp fx of Kb.Vanessa lateral cuneiform of r ft, 7thD M79.671 Pain in right foot Office Visit 04/19/2016 Xena Lee S92.224D Nondisp fx of 1:15p Office Ryan Oneil lateral cuneiform of r ft, 7thD Office Visit 04/04/2016 Xena Lee S92.224D Nondisp fx of 1:45p Office Ryan Oneil lateral cuneiform of r ft, 7thD Office Visit 03/22/2016 Xena Lee S92.224D Nondisp fx of 1:15p Office Ryan Oneil lateral cuneiform of r ft, 7thD Office Visit 03/07/2016 Xean Lee S92.224A Nondisp fx of 2:00p Office Ryan Oneil lateral cuneiform of right foot, init Office Visit 02/29/2016 Xena Lee M79.671 Pain in right foot 2:00p Office Ryan Oneil Office Visit 02/16/2016 Xena Lee M79.671 Pain in right foot 10:45a Office Ryan Oneil Office Visit 10/14/2015 Orthopaedic Jesus S93.412A Sprain of 10:00a Office Ryan Oneil calcaneofibular ligament of left ankle, init Office Visit 10/06/2015 Orthopaedic Jesus M79.671 Pain in right foot 11:00a Office Ryan Oneil W19.xxxA Unspecified fall, initial encounter Office Visit 08/31/2015 11:00a GI Maribel Tellez, R10.9 Unspecified abdominal PA-C pain R19.7 Diarrhea, unspecified K21.9 Gastro-esophageal reflux disease without esophagitis K92.1 Melena Office Visit 08/27/2015 Ophthalmology Baljeet Ware, B30.1 Conjunctivitis due 2:45p MD to adenovirus Office Visit 08/11/2015 Cardiology Office Nathaly, R10.13 Epigastric pain 9:26a Raheel Abreu M.D., [facility] M54.5 Low back pain Office Visit 04/27/2015 1:30p Orthopaedic Office Renae Gonzalez 719.47 Pain Joint S., [facility] Ankle & Foot 728.71 Fibromatosis Plantar Fascia Office Visit 03/24/2015 10:00a Orthopaedic Office Renae Gonzalez 719.47 Pain Joint S., [facility] Ank[facility] & Foot E888.9 Unspecified Fall Office Visit 03/17/2015 11:00a Orthopaedic Office Renae Gonzalez 719.47 Pain Joint S., [facility] Ank[facility] & Foot E888.9 Unspecified Fall Office Visit 05/07/2014 1:30p Orthopaedic Office Renae Gonzalez 719.41 Pain Joint S., [facility] Shoulder Region 723.1 Cervicalgia 782.0 Skin Sensation Disturbance Office Visit 04/10/2014 9:30a Orthopaedic Office Renae Gonzalez 719.41 Pain Joint S., [facility] Shoulder Region 723.1 Cervicalgia Office Visit 03/04/2014 11:00a Cardiology Office Raheel Andersen 785.1 Palpitations Ryan Abreu, [facility] 786.05 Shortness Of Breath Office Visit 01/15/2014 9:20a Cardiology Office Jeanette Raines 786.05 Shortness Of [place], MSN, Breath [facility] 785.1 Palpitations Office Visit 04/30/2013 9:50a Orthopaedic Office Ronak Veliz 842.19 Sprains & AMD Roberta Strains Hand Other Office Visit 04/03/2012 11:20a Cardiology Office Jeanette Raines [phone] Shortness Of [place], MSN, Breath [employer] 401.1 Hypertension Benign V72.81 Examination Preoperative Cardiovascular Office Visit 03/26/2012 9:00a Orthopaedic Jose Alfredo, [phone] Derangement Office Ronak Silver MD Lateral Meniscus Unspec Office Visit 03/26/2012 2:50p Cardiology Office Jeanette Raines [phone] Shortness Of [place], Breath MSN, [employer] 401.1 Hypertension Benign Office Visit 06/04/2010 11:40a Cardiology Office Raheel Andersen [phone] Pain Chest Ryan Abreu, [facility] Other 424.0 Mitral Valve Disorder Plan of Treatment Future Appointment(s):03/28/2019 10:30 am - Baljeet Tran MD at GI03/12/2019 2:20 pm - Nagi King PA at Cardiology [id number]/2019 - Baljeet Tran, [id number] Other chest painNew Medication:Nitroglycerin 0.4 mg - 1 tab by mouth up to 4 times a day as neededNew Xrays:Upper GI Series, Scheduled: Comments:concern about diffuse esophageal spasm. not responding toPPIstrial of sublingual nitroglycerinFollow up:4 [id number] Unspecified hemorrhoids
[2019-03-30 12:54] VITALS: BP 121/69
--- NOTE | 2019-03-30 13:04 | UC ---
Hand/Wrist HPI - HPI Summary HPI Summary: 48-year-old woman comes in with a chief complaint of right wrist pain. There is morning patient actually struck her distal right radius on a table. Pain is continued. Swelling in that area. Pain goes into the right thumb and up the forearm. Pain is worse with movement. Better with rest. No numbness. No skin break. - History Of Current Complaint Chief Complaint: UCUpperExtremity Stated Complaint: RIGHT WRIST INJURY Time Seen by Provider: 03/30/19 12:56 Hx Last Menstrual Period: SEP 2017 Pain Intensity: 5 - Allergies/Home Medications Allergies/Adverse Reactions: Allergies Allergy/AdvReac Type Severity Reaction Status Date / Time No Known Allergies Allergy Verified 03/30/19 12:50 PMH/Surg Hx/FS Hx/Imm Hx Previously Healthy: Yes - Surgical History Surgical History: Yes Surgery Procedure, Year, and Place: tubal ligation 1997, breast reduction 03/31, GALL BLADDER, UMBILICAL HERNIA REPAIR; D and C, cervical bx [facility] 08/25/17, hysterectomy 09/2017. INGUNIAL HERNIA REPAIR. APPENDECTOMY. - Family History Known Family History: Negative: Hypertension, Diabetes - Social History Alcohol Use: Rare Substance Use Type: None Smoking Status (MU): Heavy Every Day Tobacco Smoker Type: Cigarettes Amount Used/How Often: 1/2 PPD Household Exposure Type: Cigarettes Review of Systems All Other Systems Reviewed And Are Negative: Yes Constitutional: Positive: Negative Skin: Positive: Negative Eyes: Positive: Negative ENT: Positive: Negative Respiratory: Positive: Negative Cardiovascular: Positive: Negative Gastrointestinal: Positive: Negative Motor: Positive: Negative Neurovascular: Positive: Negative Musculoskeletal: Positive: Other: - see hpi Neurological: Positive: Negative Psychological: Positive: Negative Is Patient Immunocompromised?: No Physical Exam Triage Information Reviewed: Yes Appearance: Well-Appearing, No Pain Distress, Well-Nourished Vital Signs: Initial Vital Signs Temp 97.9 F 03/30/19 12:50 Pulse 66 03/30/19 12:50 Resp 16 03/30/19 12:50 BP 121/69 03/30/19 12:50 Pulse Ox 100 03/30/19 12:50 Vital Signs Reviewed: Yes Eye Exam: Normal Eyes: Positive: Conjunctiva Clear Neck: Positive: Supple Respiratory: Positive: No respiratory distress Musculoskeletal: Positive: Other: - Right wrist is tender to palpation over the distal radius. She is also tender into the proximal thumb and proximally to the distal forearm along the distribution of the radius. Elbow was full range of motion fingers full range of motion. No skin break. Normal capillary refill. No sensation deficit. Neurological Exam: Normal Neurological: Positive: Alert, Muscle Tone Normal Psychological Exam: Normal Psychological: Positive: Age Appropriate Behavior Skin Exam: Normal Hand/Wrist Course/Dx - Differential Dx/Diagnosis Provider Diagnosis: Right wrist sprain, Right wrist tendonitis Discharge - Sign-Out/Discharge Documenting (check all that apply): Patient Departure All imaging exams completed and their final reports reviewed: Yes - Discharge Plan Condition: Stable Disposition: HOME Patient Education Materials: Wrist Sprain (ED) Referrals: Amie Sanders [Primary Care Provider] - Additional Instructions: FOLLOW UP WITH YOUR DOCTOR IF NOT COMPLETELY IMPROVED. GET RECHECKED SOONER IF YOUR CONDITION WORSENS OR ANY QUESTIONS OR CONCERNS. - Billing Disposition and Condition Condition: STABLE Disposition: Home
== END 2019-03-30 13:41 | disposition home or self-care (01) ==
LOC: UCCORT 12:19
DX: S63.501A Unspecified sprain of right wrist, initial encounter (principal); M77.9 Enthesopathy, unspecified; W22.03XA Walked into furniture, initial encounter; Y92.9 Unspecified place or not applicable; F17.210 Nicotine dependence, cigarettes, uncomplicated
CPT/HCPCS: 99212; G0463

== ENCOUNTER 2019-05-11 20:11 | Emergency (ER) | payer OTHER ==
[2019-05-11 20:35] VITALS: BP 138/72
--- NOTE | 2019-05-11 20:50 | UC ---
Minor Trauma HPI - HPI Summary HPI Summary: fell woalking in the house tonight after getting home from work---abrasions on both knee and pain ulnar aspect of right hand - History of Current Complaint Chief Complaint: UCUpperExtremity Stated Complaint: S/P FALL-RT HAND,LEFT KNEE INJURY Time Seen by Provider: 05/11/19 20:43 Hx Obtained From: Patient Hx Last Menstrual Period: SEP 2017 ?: No Onset/Duration: Sudden Onset, Lasting Hours Onset Of Pain: Immediate Pain Intensity: 5 Pain Scale Used: 0-10 Numeric Mechanism Of Injury: Fall From A Standing Position Aggravating Factor(s): Nothing Alleviating Factor(s): Nothing Associated Signs And Symptoms: Positive: Ecchymosis - both knees, Swelling - left hand - Allergies/Home Medications Allergies/Adverse Reactions: Allergies Allergy/AdvReac Type Severity Reaction Status Date / Time No Known Allergies Allergy Verified 05/11/19 20:35 PMH/Surg Hx/FS Hx/Imm Hx Previously Healthy: No - Surgical History Surgical History: Yes Surgery Procedure, Year, and Place: tubal ligation 1997, breast reduction 03/31, GALL BLADDER, UMBILICAL HERNIA REPAIR; D and C, cervical bx [facility] 08/25/17, hysterectomy 09/2017. INGUNIAL HERNIA REPAIR. APPENDECTOMY. - Family History Known Family History: Negative: Hypertension, Diabetes - Social History Occupation: Employed Full-time Lives: With Family Alcohol Use: Weekly Alcohol Amount: once a week Substance Use Type: None Smoking Status (MU): Light Every Day Tobacco Smoker Type: Cigarettes Amount Used/How Often: 1/2 PPD Household Exposure Type: Cigarettes Review of Systems All Other Systems Reviewed And Are Negative: Yes Constitutional: Positive: Negative Skin: Positive: Bruising, Other - abrasions on both knees Eyes: Positive: Negative ENT: Positive: Negative Respiratory: Positive: Negative Cardiovascular: Positive: Negative Gastrointestinal: Positive: Negative Genitourinary: Positive: Negative Motor: Positive: Negative Neurovascular: Positive: Negative Musculoskeletal: Positive: Arthralgia - left hand 4/5 mc Neurological: Positive: Negative Psychological: Positive: Negative Is Patient Immunocompromised?: No Physical Exam Triage Information Reviewed: Yes Appearance: Well-Appearing, No Pain Distress, Well-Nourished Vital Signs: Initial Vital Signs Temp 97.8 F 05/11/19 20:30 Pulse 67 05/11/19 20:30 Resp 16 06/22/19 20:30 BP 138/72 05/11/19 20:30 Pulse Ox 100 05/11/19 20:30 Vital Signs Reviewed: Yes Eye Exam: Normal Eyes: Positive: Conjunctiva Clear ENT Exam: Normal ENT: Positive: Normal ENT inspection, Hearing grossly normal. Negative: Trismus , Muffled voice, Hoarse voice Dental Exam: Normal Neck exam: Normal Neck: Positive: Supple, Nontender Respiratory Exam: Normal Respiratory: Positive: Chest non-tender, No respiratory distress, No accessory muscle use Cardiovascular Exam: Normal Cardiovascular: Positive: RRR, Pulses Normal, Brisk Capillary Refill Abdominal Exam: Normal Musculoskeletal Exam: Normal Musculoskeletal: Positive: Strength Intact, ROM Intact, Edema @ - left hand Neurological Exam: Normal Neurological: Positive: Alert Psychological Exam: Normal Skin: Positive: Other - abrasions and bruising both knees Diagnostics - Radiology No standard instances Radiology Interpretation Completed By: ED Physician - no evidence of fracture or fb in left knee Minor Trauma Course/Dx - Differential Dx/Diagnosis Provider Diagnosis: Abrasion of knee, bilateral, Contusion of knee, right, Contusion of right hand Discharge - Sign-Out/Discharge Documenting (check all that apply): Patient Departure All imaging exams completed and their final reports reviewed: No - Discharge Plan Condition: Stable Disposition: HOME Patient Education Materials: Ibuprofen (By mouth), Bacitracin (On the skin), Contusion in Adults (ED), Abrasion (ED) Referrals: Amie Sanders [Primary Care Provider] - If Needed - Billing Disposition and Condition Condition: STABLE Disposition: Home
--- NOTE | 2019-05-12 09:12 | UC ---
- EKG/XRAY/CT Xray Comments: wet read correct Course/Dx - Diagnoses Provider Diagnoses: Abrasion of knee, bilateral, Contusion of knee, right, Contusion of right hand Discharge - Sign-Out/Discharge Documenting (check all that apply): Post-Discharge Follow Up All imaging exams completed and their final reports reviewed: Yes - Discharge Plan Condition: Stable Disposition: HOME Patient Education Materials: Ibuprofen (By mouth), Bacitracin (On the skin), Contusion in Adults (ED), Abrasion (ED) Referrals: Amie Sanders [Primary Care Provider] - If Needed - Billing Disposition and Condition Condition: STABLE Disposition: Home
== END 2019-05-11 21:37 | disposition home or self-care (01) ==
LOC: UCCORT 20:11
DX: S80.212A Abrasion, left knee, initial encounter (principal); S80.211A Abrasion, right knee, initial encounter; S60.221A Contusion of right hand, initial encounter; W19.XXXA Unspecified fall, initial encounter; Y93.01 Activity, walking, marching and hiking; Y92.009 Unspecified place in unspecified non-institutional (private) residence as the place of occurrence of the external cause; F17.210 Nicotine dependence, cigarettes, uncomplicated
CPT/HCPCS: 99212; G0463